=== PATIENT | female | born 1955 | race Caucasian/White ===

== ENCOUNTER → 2017-01-25 | Outpatient (CLI) | payer BC | END | disposition home or self-care (01) | LOC: CFH 14:29 | PROVIDERS: ATTEND Family Medicine | DX: N63 Unspecified lump in breast (principal) | CPT/HCPCS: 76642; G0204 ==

== ENCOUNTER → 2017-02-15 | Outpatient (CLI) | payer BC ==
[~2017-02-15] MED LIST: LIDOCAINE 1%, 20ML ONE
== END | disposition home or self-care (01) ==
LOC: CFH 09:28
PROVIDERS: ATTEND Family Medicine
DX: R92.2 Inconclusive mammogram (principal)
CPT/HCPCS: 19083; 88305; G0206; J3490

== ENCOUNTER → 2017-04-19 | Outpatient (CLI) | payer BC | END | disposition home or self-care (01) | LOC: RAD 12:33 | PROVIDERS: ATTEND Family Medicine | DX: M79.604 Pain in right leg (principal); J18.8 Other pneumonia, unspecified organism; R60.9 Edema, unspecified | CPT/HCPCS: 71020; 93970 ==

== ENCOUNTER 2018-04-23 14:08 | Inpatient (IN) | payer BC, OTHER ==
[~2018-04-23] VITALS: Ht 172.7 cm; Wt 111.8 kg
[2018-04-23] MEDS ORDERED: VANCOMYCIN PER PHARMACY MC ONE (15:00)
[2018-04-23] MEDS ORDERED: LEVOFLOXACIN/PMX 750MG/150ML 150 ML IVPB ONE (15:00)
[2018-04-23] MEDS ORDERED: SODIUM CHLORIDE FLUSH 10ML SYR IVF ONE (15:00)
[2018-04-23 15:21] LABS: BASOPHILS # (AUTO) 0.03 x10^3/uL (0-0.1); BASOPHILS % (AUTO) 0 % (0-1); EOSINOPHILS # (AUTO) 0.15 x10^3/uL (0-0.4); EOSINOPHILS % (AUTO) 1 % (1-7); LYMPHOCYTES # (AUTO) 1.24 x10^3/uL (1-3.4); LYMPHOCYTES % (AUTO) 10 % (22-44); MD NO; MEAN CORPUSCULAR HEMOGLOBIN 27.5 pg (27.0-34.8); MEAN CORPUSCULAR HGB CONC 33.2 g/dL (32.4-35.8); MEAN CORPUSCULAR VOLUME 82.9 fL (80-100); MEAN PLATELET VOLUME 7.2 fL (7.4-10.4); MONOCYTES # (AUTO) 0.75 x10^3/uL (0.2-0.8); MONOCYTES % (AUTO) 6 % (2-9); NEUTROPHILS % (AUTO) 83 % (42-75); PLATELET COUNT 306 x10^3/uL (130-400); RED CELL DISTRIBUTION WIDTH 16.8 % (9.6-15.2)
[2018-04-23] MEDS ORDERED: LEVOFLOXACIN/PMX 750MG/150ML 150 ML ONE (15:23)
[2018-04-23] MEDS ORDERED: VANCOMYCIN 1,600 MG in SODIUM CHLORIDE 0.9% 250 ML IV ONE (15:30)
[2018-04-23 15:31] LABS: ALANINE AMINOTRANSFERASE 20 U/L (12-78); ALBUMIN 3.7 g/dL (3.4-5.0); ANION GAP 4 mmol/L (5-15); CALCIUM 9.1 mg/dL (8.5-10.1); CHLORIDE 101 mmol/L (98-107)
[2018-04-23 15:33] LABS: ALKALINE PHOSPHATASE 131 U/L (45-117); BILIRUBIN,TOTAL 0.5 mg/dL (0.2-1.0); TOTAL PROTEIN 8.5 g/dL (6.4-8.2)
[2018-04-23] MEDS ORDERED: CALCIUM CHLORIDE 10%, 10ML SYR IVPush ONE (16:00)
[2018-04-23] MEDS ORDERED: DEXTROSE 50%, 50ML SYRINGE IVPush ONE (16:00)
[2018-04-23] MEDS ORDERED: INSULIN REGULAR 100 UNITS/ML, 3ML VIAL IVPush ONE (16:00)
[2018-04-23] MEDS ORDERED: FUROSEMIDE 40 MG/4 ML IVPush ONE (16:00)
[2018-04-23] MEDS ORDERED: SODIUM BICARB 8.4%, 50ML SYRINGE IVPush ONE (16:00)
[2018-04-23] MEDS ORDERED: DEXTROSE 50%, 50ML SYRINGE ONE (16:01)
[2018-04-23] MEDS ORDERED: SODIUM BICARB 8.4%, 50ML SYRINGE ONE (16:01)
[2018-04-23] MEDS ORDERED: FUROSEMIDE 40 MG/4 ML ONE (16:01)
[2018-04-23] MEDS ORDERED: CALCIUM CHLORIDE 10%, 10ML SYR ONE (16:01)
[2018-04-23] MEDS ORDERED: INSULIN REGULAR 100 UNITS/ML, 3ML VIAL ONE (16:02)
[2018-04-23] MEDS ORDERED: LIDOCAINE-MPF 1%, 5ML ONE (16:55)
[2018-04-23 16:57] LABS: FREE T4 (FREE THYROXINE) 1.16 ng/dL (0.76-1.46)
[2018-04-23] MEDS ORDERED: LABETALOL 5MG/ML, 20ML IVPush PRN (17:00)
[2018-04-23] MEDS ORDERED: POLYETHYLENE GLYCOL 17 GM PACKET PO PRN (17:00)
[2018-04-23] MEDS ORDERED: ONDANSETRON 2MG/ML, 2ML IVPush PRN (17:00)
[2018-04-23] MEDS ORDERED: ONDANSETRON ODT 4 MG PO PRN (17:00)
[2018-04-23] MEDS ORDERED: CEFTAROLINE 600 MG in SODIUM CHLORIDE 0.9% 100 ML IV SCH (17:00)
[2018-04-23] MEDS ORDERED: PHARMACY MAY ADJ FOR RENAL FX MC PRN (17:00)
[2018-04-23] MEDS: HEPARIN 5,000 UNITS/ML, 1ML SQ SCH (17:00)
[2018-04-23 18:11] LABS: MICROSCOPIC INDICATED
[2018-04-23 18:15] LABS: ANION GAP 6 mmol/L (5-15); CALCIUM 9.3 mg/dL (8.5-10.1); CHLORIDE 103 mmol/L (98-107)
[2018-04-23 18:19] LABS: CREATININE,URINE RANDOM 94.1 mg/dL
[2018-04-23 18:22] LABS: CULTURE INDICATED? NO
[2018-04-23 18:27] LABS: CHLORIDE,URINE RANDOM 78 mmol/L; POTASSIUM,URINE RANDOM 43 mmol/L; SODIUM,URINE RANDOM 39 mmol/L
[2018-04-23 23:22] LABS: ANION GAP 6 mmol/L (5-15); CALCIUM 8.4 mg/dL (8.5-10.1); CHLORIDE 103 mmol/L (98-107); CREATININE 1.43 mg/dL (0.55-1.02)
[2018-04-23 23:32] VITALS: BP 93/55
[2018-04-23] MEDS: CEFTAROLINE 300 MG in SODIUM CHLORIDE 0.9% 100 ML IV SCH (23:45)
[2018-04-24] MEDS: HEPARIN 5,000 UNITS/ML, 1ML SQ SCH ×3 (01:19→17:41)
[2018-04-24 01:38] VITALS: BP 102/69
[2018-04-24] MEDS ORDERED: METF-688 PO (02:33)
[2018-04-24] MEDS ORDERED: OMEP20CA14 PO (02:34)
[2018-04-24] MEDS ORDERED: PRAV80TA2 PO (02:35)
[2018-04-24] MEDS ORDERED: SODI325T PO (02:37)
[2018-04-24] MEDS ORDERED: PARO-28 PO (02:39)
[2018-04-24] MEDS ORDERED: INSU100V13 SQ-INSULIN (02:41)
[2018-04-24 05:18] LABS: BASOPHILS # (AUTO) 0.04 x10^3/uL (0-0.1); BASOPHILS % (AUTO) 0 % (0-1); EOSINOPHILS % (AUTO) 1 % (1-7); LYMPHOCYTES % (AUTO) 15 % (22-44); MD NO; MEAN CORPUSCULAR HEMOGLOBIN 27.7 pg (27.0-34.8); MEAN CORPUSCULAR HGB CONC 33.5 g/dL (32.4-35.8); MEAN CORPUSCULAR VOLUME 82.8 fL (80-100); MEAN PLATELET VOLUME 7.2 fL (7.4-10.4); MONOCYTES # (AUTO) 0.73 x10^3/uL (0.2-0.8); MONOCYTES % (AUTO) 8 % (2-9); NEUTROPHILS # (AUTO) 7.11 x10^3/uL (1.8-6.8); NEUTROPHILS % (AUTO) 76 % (42-75); PLATELET COUNT 266 x10^3/uL (130-400); RED BLOOD COUNT 5.11 x10^6/uL (3.82-5.3); RED CELL DISTRIBUTION WIDTH 16.6 % (9.6-15.2)
[2018-04-24 05:24] LABS: CHLORIDE 103 mmol/L (98-107)
[2018-04-24 05:43] LABS: ALANINE AMINOTRANSFERASE 15 U/L (12-78); ALBUMIN 2.7 g/dL (3.4-5.0); ALKALINE PHOSPHATASE 99 U/L (45-117); ANION GAP 7 mmol/L (5-15); BILIRUBIN,TOTAL 0.5 mg/dL (0.2-1.0); CALCIUM 8.1 mg/dL (8.5-10.1); CREATININE 1.69 mg/dL (0.55-1.02); TOTAL PROTEIN 6.3 g/dL (6.4-8.2)
[2018-04-24 06:50] VITALS: BP 114/63
[2018-04-24] MEDS ORDERED: SODIUM POLYSTYRENE SULFONATE ORAL SUSP PO ONE (08:30)
[2018-04-24] MEDS ORDERED: SODIUM CHLORIDE 0.9%, 500ML IV SCH (08:30)
[2018-04-24] MEDS: SENNA/DOCUSATE TABLET PO SCH (09:00)
[2018-04-24] MEDS: CEFTAROLINE 300 MG in SODIUM CHLORIDE 0.9% 100 ML IV SCH ×2 (11:45→23:02)
[2018-04-24 13:44] VITALS: BP 114/63
[2018-04-24 14:13] LABS: ANION GAP 6 mmol/L (5-15); CALCIUM 8.4 mg/dL (8.5-10.1); CHLORIDE 105 mmol/L (98-107); CREATININE 2.01 mg/dL (0.55-1.02)
[2018-04-24 14:16] LABS: CREATINE KINASE, TOTAL 136 U/L (26-192)
[2018-04-24 20:34] VITALS: BP 119/76
[2018-04-25] MEDS: HEPARIN 5,000 UNITS/ML, 1ML SQ SCH ×3 (01:50→20:24)
[2018-04-25 01:51] VITALS: BP 113/73
[2018-04-25 04:49] LABS: BASOPHILS # (AUTO) 0.03 x10^3/uL (0-0.1); BASOPHILS % (AUTO) 0 % (0-1); EOSINOPHILS # (AUTO) 0.11 x10^3/uL (0-0.4); EOSINOPHILS % (AUTO) 1 % (1-7); LYMPHOCYTES # (AUTO) 1.17 x10^3/uL (1-3.4); LYMPHOCYTES % (AUTO) 15 % (22-44); MD NO; MEAN CORPUSCULAR HGB CONC 33.5 g/dL (32.4-35.8); MEAN CORPUSCULAR VOLUME 83.4 fL (80-100); MONOCYTES # (AUTO) 0.61 x10^3/uL (0.2-0.8); MONOCYTES % (AUTO) 8 % (2-9); NEUTROPHILS # (AUTO) 5.93 x10^3/uL (1.8-6.8); NEUTROPHILS % (AUTO) 75 % (42-75); PLATELET COUNT 215 x10^3/uL (130-400); RED BLOOD COUNT 4.71 x10^6/uL (3.82-5.3); RED CELL DISTRIBUTION WIDTH 16.9 % (9.6-15.2)
[2018-04-25 04:57] LABS: ALBUMIN 2.2 g/dL (3.4-5.0); ANION GAP 7 mmol/L (5-15); CALCIUM 7.9 mg/dL (8.5-10.1); CHLORIDE 104 mmol/L (98-107); CREATININE 1.82 mg/dL (0.55-1.02)
[2018-04-25 07:33] VITALS: BP 116/72
[2018-04-25] MEDS: SENNA/DOCUSATE TABLET PO SCH (07:54)
[2018-04-25] MEDS: CEFTAROLINE 300 MG in SODIUM CHLORIDE 0.9% 100 ML IV SCH (11:18)
[2018-04-25 15:37] VITALS: BP 107/69
[2018-04-25 20:32] VITALS: BP 103/68
[2018-04-25] MEDS: CEFTAROLINE 400 MG in SODIUM CHLORIDE 0.9% 100 ML IV SCH (23:36)
[2018-04-26 01:25] VITALS: BP 103/61
[2018-04-26 05:25] LABS: BASOPHILS # (AUTO) 0.03 x10^3/uL (0-0.1); BASOPHILS % (AUTO) 0 % (0-1); EOSINOPHILS # (AUTO) 0.12 x10^3/uL (0-0.4); EOSINOPHILS % (AUTO) 2 % (1-7); LYMPHOCYTES # (AUTO) 1.45 x10^3/uL (1-3.4); LYMPHOCYTES % (AUTO) 20 % (22-44); MD NO; MEAN CORPUSCULAR HEMOGLOBIN 27.8 pg (27.0-34.8); MEAN CORPUSCULAR HGB CONC 33.5 g/dL (32.4-35.8); MEAN CORPUSCULAR VOLUME 83.2 fL (80-100); MEAN PLATELET VOLUME 7.3 fL (7.4-10.4); MONOCYTES # (AUTO) 0.66 x10^3/uL (0.2-0.8); MONOCYTES % (AUTO) 9 % (2-9); NEUTROPHILS # (AUTO) 4.97 x10^3/uL (1.8-6.8); NEUTROPHILS % (AUTO) 69 % (42-75); PLATELET COUNT 210 x10^3/uL (130-400); RED BLOOD COUNT 4.44 x10^6/uL (3.82-5.3); RED CELL DISTRIBUTION WIDTH 16.3 % (9.6-15.2)
[2018-04-26] MEDS: HEPARIN 5,000 UNITS/ML, 1ML SQ SCH ×3 (05:26→19:49)
[2018-04-26 05:40] LABS: ALANINE AMINOTRANSFERASE 13 U/L (12-78); ALBUMIN 2.1 g/dL (3.4-5.0); ANION GAP 6 mmol/L (5-15); CALCIUM 7.8 mg/dL (8.5-10.1); CHLORIDE 100 mmol/L (98-107)
[2018-04-26 05:43] LABS: ALKALINE PHOSPHATASE 81 U/L (45-117); BILIRUBIN,TOTAL 0.4 mg/dL (0.2-1.0); TOTAL PROTEIN 5.5 g/dL (6.4-8.2)
[2018-04-26] MEDS ORDERED: MAGNESIUM SULFATE PMX 2GM/50ML 50 ML IV ONE (08:00)
[2018-04-26] MEDS: SENNA/DOCUSATE TABLET PO SCH (09:00)
[2018-04-26] MEDS: CEFTAROLINE 400 MG in SODIUM CHLORIDE 0.9% 100 ML IV SCH ×2 (11:19→23:44)
[2018-04-26] MEDS: PANTOPRAZOLE 40 MG IV IVPush SCH ×2 (11:19→23:44)
[2018-04-26 13:02] VITALS: BP 112/74
[2018-04-26 20:43] VITALS: BP 108/66
[2018-04-27 00:58] VITALS: BP 128/87
[2018-04-27] MEDS: HEPARIN 5,000 UNITS/ML, 1ML SQ SCH ×2 (05:08→10:57)
[2018-04-27 05:27] LABS: ALBUMIN 2.2 g/dL (3.4-5.0); ANION GAP 6 mmol/L (5-15); CALCIUM 7.9 mg/dL (8.5-10.1); CHLORIDE 101 mmol/L (98-107); CREATININE 1.39 mg/dL (0.55-1.02)
[2018-04-27 05:45] LABS: BASOPHILS # (AUTO) 0.02 x10^3/uL (0-0.1); BASOPHILS % (AUTO) 0 % (0-1); EOSINOPHILS # (AUTO) 0.19 x10^3/uL (0-0.4); EOSINOPHILS % (AUTO) 3 % (1-7); LYMPHOCYTES # (AUTO) 1.34 x10^3/uL (1-3.4); LYMPHOCYTES % (AUTO) 20 % (22-44); MD NO; MEAN CORPUSCULAR HEMOGLOBIN 27.8 pg (27.0-34.8); MEAN CORPUSCULAR HGB CONC 33.3 g/dL (32.4-35.8); MEAN CORPUSCULAR VOLUME 83.5 fL (80-100); MEAN PLATELET VOLUME 7.3 fL (7.4-10.4); MONOCYTES % (AUTO) 9 % (2-9); NEUTROPHILS # (AUTO) 4.47 x10^3/uL (1.8-6.8); NEUTROPHILS % (AUTO) 68 % (42-75); PLATELET COUNT 207 x10^3/uL (130-400); RED CELL DISTRIBUTION WIDTH 16.7 % (9.6-15.2)
[2018-04-27 07:33] VITALS: BP 104/71
[2018-04-27] MEDS: SENNA/DOCUSATE TABLET PO SCH (08:01)
[2018-04-27] MEDS ORDERED: CEPH-368 PO (10:41)
[2018-04-27] MEDS: CEFTAROLINE 400 MG in SODIUM CHLORIDE 0.9% 100 ML IV SCH ×2 (11:00→11:33)
[2018-04-27] MEDS: PANTOPRAZOLE 40 MG IV IVPush SCH (11:33)
[2018-04-27] MEDS ORDERED: CEPHALEXIN 500 MG CAPSULE PO ONE (12:00)
== END 2018-04-27 13:33 | disposition home or self-care (01) | DRG 300 ==
LOC: ED 17:14 → EDIP 17:15 → 5SO 19:21 → DCLOUNGE 04-27 13:18
PROVIDERS: ADMIT Hospitalist; ATTEND Hospitalist
PROC: 5A1D70Z Performance of Urinary Filtration, Intermittent, Less than 6 Hours Per Day (ICD-10-PCS; principal; 2018-04-23)
PROC: 02HV33Z Insertion of Infusion Device into Superior Vena Cava, Percutaneous Approach (ICD-10-PCS; 2018-04-24)
PROC: B5181ZA Fluoroscopy of Superior Vena Cava using Low Osmolar Contrast, Guidance (ICD-10-PCS; 2018-04-24)
PROC: B548ZZA Ultrasonography of Superior Vena Cava, Guidance (ICD-10-PCS; 2018-04-24)
DX: I70.213 Atherosclerosis of native arteries of extremities with intermittent claudication, bilateral legs (principal); E87.1 Hypo-osmolality and hyponatremia; I50.30 Unspecified diastolic (congestive) heart failure; L03.115 Cellulitis of right lower limb; L03.116 Cellulitis of left lower limb; L97.919 Non-pressure chronic ulcer of unspecified part of right lower leg with unspecified severity; N17.9 Acute kidney failure, unspecified; L97.929 Non-pressure chronic ulcer of unspecified part of left lower leg with unspecified severity; E11.22 Type 2 diabetes mellitus with diabetic chronic kidney disease; E11.51 Type 2 diabetes mellitus with diabetic peripheral angiopathy without gangrene; E87.5 Hyperkalemia; F17.200 Nicotine dependence, unspecified, uncomplicated; G25.81 Restless legs syndrome; K21.9 Gastro-esophageal reflux disease without esophagitis; Z80.3 Family history of malignant neoplasm of breast; Z82.0 Family history of epilepsy and other diseases of the nervous system; Z99.2 Dependence on renal dialysis
CPT/HCPCS: 36415; 36556; 71045; 76770; 76937; 77001; 80048; 80053; 80069; 81001; 82040; 82436; 82550; 82570; 82962; 83605; 83735; 84100; 84133; 84156; 84300; 84439; 84443; 85025; 86705; 86706; 87040; 87070; 87077; 87147; 87186; 87205; 87340; 93005; 93306; 93922; 93970; G0378; J0712; J1644; J1940; J1956; J3370; C1751; C9113; J1642; J3475; J7040; J7050

== ENCOUNTER → 2018-05-02 | Outpatient (CLI) | payer OTHER ==
[~2018-05-02] MED LIST changes: +CEPH-368 PO; +INSU100V13 SQ-INSULIN; -LIDOCAINE 1%, 20ML ONE; +METF-688 PO; +OMEP20CA14 PO; +PARO-28 PO; +PRAV80TA2 PO; +SODI325T PO
== END | disposition home or self-care (01) ==
LOC: WOUND 14:27
PROVIDERS: ATTEND Internal Medicine
DX: E11.622 Type 2 diabetes mellitus with other skin ulcer (principal); L97.811 Non-pressure chronic ulcer of other part of right lower leg limited to breakdown of skin; L97.821 Non-pressure chronic ulcer of other part of left lower leg limited to breakdown of skin; E11.51 Type 2 diabetes mellitus with diabetic peripheral angiopathy without gangrene; I13.0 Hypertensive heart and chronic kidney disease with heart failure and stage 1 through stage 4 chronic kidney disease, or unspecified chronic kidney disease; E11.22 Type 2 diabetes mellitus with diabetic chronic kidney disease; N18.9 Chronic kidney disease, unspecified; I50.30 Unspecified diastolic (congestive) heart failure; E78.5 Hyperlipidemia, unspecified; F32.9 Major depressive disorder, single episode, unspecified; F41.9 Anxiety disorder, unspecified; K21.9 Gastro-esophageal reflux disease without esophagitis; F17.210 Nicotine dependence, cigarettes, uncomplicated; G25.81 Restless legs syndrome; Z79.4 Long term (current) use of insulin; Z99.2 Dependence on renal dialysis; Z86.718 Personal history of other venous thrombosis and embolism
CPT/HCPCS: 97597; 97598; 99215

== ENCOUNTER 2018-05-07 14:27 | Outpatient (CLI) | payer OTHER | END 2018-05-07 23:59 | disposition home or self-care (01) | LOC: WOUND 14:27 | PROVIDERS: ATTEND Internal Medicine | DX: E11.622 Type 2 diabetes mellitus with other skin ulcer (principal); L97.821 Non-pressure chronic ulcer of other part of left lower leg limited to breakdown of skin; L97.811 Non-pressure chronic ulcer of other part of right lower leg limited to breakdown of skin; E11.51 Type 2 diabetes mellitus with diabetic peripheral angiopathy without gangrene; I13.0 Hypertensive heart and chronic kidney disease with heart failure and stage 1 through stage 4 chronic kidney disease, or unspecified chronic kidney disease; E11.22 Type 2 diabetes mellitus with diabetic chronic kidney disease; N18.9 Chronic kidney disease, unspecified; I50.9 Heart failure, unspecified; E78.5 Hyperlipidemia, unspecified; G25.81 Restless legs syndrome; G89.4 Chronic pain syndrome; F41.9 Anxiety disorder, unspecified; F17.210 Nicotine dependence, cigarettes, uncomplicated; F32.9 Major depressive disorder, single episode, unspecified; K21.9 Gastro-esophageal reflux disease without esophagitis; Z79.4 Long term (current) use of insulin; Z99.2 Dependence on renal dialysis; Z85.3 Personal history of malignant neoplasm of breast | CPT/HCPCS: 29581; 97597; 97598 ==

== ENCOUNTER 2018-05-14 13:51 | Outpatient (CLI) | payer OTHER | END 2018-05-14 23:59 | disposition home or self-care (01) | LOC: WOUND 13:51 | PROVIDERS: ATTEND Internal Medicine | DX: E11.622 Type 2 diabetes mellitus with other skin ulcer (principal); L97.811 Non-pressure chronic ulcer of other part of right lower leg limited to breakdown of skin; L97.821 Non-pressure chronic ulcer of other part of left lower leg limited to breakdown of skin; E11.51 Type 2 diabetes mellitus with diabetic peripheral angiopathy without gangrene; I13.0 Hypertensive heart and chronic kidney disease with heart failure and stage 1 through stage 4 chronic kidney disease, or unspecified chronic kidney disease; E11.22 Type 2 diabetes mellitus with diabetic chronic kidney disease; N18.9 Chronic kidney disease, unspecified; I50.30 Unspecified diastolic (congestive) heart failure; G25.81 Restless legs syndrome; E78.5 Hyperlipidemia, unspecified; F41.9 Anxiety disorder, unspecified; F32.9 Major depressive disorder, single episode, unspecified; F17.210 Nicotine dependence, cigarettes, uncomplicated; K21.9 Gastro-esophageal reflux disease without esophagitis; Z99.2 Dependence on renal dialysis; Z79.4 Long term (current) use of insulin; Z85.3 Personal history of malignant neoplasm of breast; Z86.718 Personal history of other venous thrombosis and embolism | CPT/HCPCS: 97597 ==

== ENCOUNTER → 2018-05-21 | Outpatient (CLI) | payer OTHER | END | disposition home or self-care (01) | LOC: WOUND 14:38 | PROVIDERS: ATTEND Internal Medicine | DX: L03.115 Cellulitis of right lower limb (principal); L03.116 Cellulitis of left lower limb; E11.51 Type 2 diabetes mellitus with diabetic peripheral angiopathy without gangrene; I13.0 Hypertensive heart and chronic kidney disease with heart failure and stage 1 through stage 4 chronic kidney disease, or unspecified chronic kidney disease; E11.22 Type 2 diabetes mellitus with diabetic chronic kidney disease; N18.9 Chronic kidney disease, unspecified; I50.30 Unspecified diastolic (congestive) heart failure; G25.81 Restless legs syndrome; E78.5 Hyperlipidemia, unspecified; F32.9 Major depressive disorder, single episode, unspecified; F41.9 Anxiety disorder, unspecified; K21.9 Gastro-esophageal reflux disease without esophagitis; F17.210 Nicotine dependence, cigarettes, uncomplicated; Z79.4 Long term (current) use of insulin | CPT/HCPCS: 99214 ==

== ENCOUNTER 2018-05-23 15:00 | Outpatient (CLI) | payer OTHER | END 2018-05-23 23:59 | disposition home or self-care (01) | LOC: WOUND 15:00 | PROVIDERS: ATTEND Internal Medicine | DX: E11.622 Type 2 diabetes mellitus with other skin ulcer (principal); L97.811 Non-pressure chronic ulcer of other part of right lower leg limited to breakdown of skin; L97.821 Non-pressure chronic ulcer of other part of left lower leg limited to breakdown of skin; E11.51 Type 2 diabetes mellitus with diabetic peripheral angiopathy without gangrene; I13.0 Hypertensive heart and chronic kidney disease with heart failure and stage 1 through stage 4 chronic kidney disease, or unspecified chronic kidney disease; N18.9 Chronic kidney disease, unspecified; E11.22 Type 2 diabetes mellitus with diabetic chronic kidney disease; I50.9 Heart failure, unspecified; G89.4 Chronic pain syndrome; F41.9 Anxiety disorder, unspecified; E78.5 Hyperlipidemia, unspecified; K21.9 Gastro-esophageal reflux disease without esophagitis; F32.9 Major depressive disorder, single episode, unspecified; F17.210 Nicotine dependence, cigarettes, uncomplicated; Z99.2 Dependence on renal dialysis; Z79.4 Long term (current) use of insulin; Z85.3 Personal history of malignant neoplasm of breast; Z86.718 Personal history of other venous thrombosis and embolism | CPT/HCPCS: 29581 ==

== ENCOUNTER → 2018-05-30 | Outpatient (CLI) | payer OTHER | END | disposition home or self-care (01) | LOC: WOUND 11:30 | PROVIDERS: ATTEND Internal Medicine Cardiovascular Disease | DX: L03.116 Cellulitis of left lower limb (principal); L03.115 Cellulitis of right lower limb; E11.51 Type 2 diabetes mellitus with diabetic peripheral angiopathy without gangrene; I13.0 Hypertensive heart and chronic kidney disease with heart failure and stage 1 through stage 4 chronic kidney disease, or unspecified chronic kidney disease; E11.22 Type 2 diabetes mellitus with diabetic chronic kidney disease; N18.9 Chronic kidney disease, unspecified; I50.30 Unspecified diastolic (congestive) heart failure; G25.81 Restless legs syndrome; F41.9 Anxiety disorder, unspecified; E78.5 Hyperlipidemia, unspecified; F32.9 Major depressive disorder, single episode, unspecified; K21.9 Gastro-esophageal reflux disease without esophagitis; F17.210 Nicotine dependence, cigarettes, uncomplicated; Z86.718 Personal history of other venous thrombosis and embolism; Z99.2 Dependence on renal dialysis; Z79.4 Long term (current) use of insulin | CPT/HCPCS: 29581 ==

== ENCOUNTER → 2018-06-04 | Outpatient (CLI) | payer OTHER | END | disposition home or self-care (01) | LOC: WOUND 15:27 | PROVIDERS: ATTEND Family Medicine | DX: E11.622 Type 2 diabetes mellitus with other skin ulcer (principal); L97.211 Non-pressure chronic ulcer of right calf limited to breakdown of skin; L97.221 Non-pressure chronic ulcer of left calf limited to breakdown of skin; E11.51 Type 2 diabetes mellitus with diabetic peripheral angiopathy without gangrene; I13.0 Hypertensive heart and chronic kidney disease with heart failure and stage 1 through stage 4 chronic kidney disease, or unspecified chronic kidney disease; E11.22 Type 2 diabetes mellitus with diabetic chronic kidney disease; N18.9 Chronic kidney disease, unspecified; I50.30 Unspecified diastolic (congestive) heart failure; F41.9 Anxiety disorder, unspecified; G25.81 Restless legs syndrome; E78.5 Hyperlipidemia, unspecified; F32.9 Major depressive disorder, single episode, unspecified; F17.210 Nicotine dependence, cigarettes, uncomplicated; K21.9 Gastro-esophageal reflux disease without esophagitis; Z79.4 Long term (current) use of insulin; Z86.718 Personal history of other venous thrombosis and embolism | CPT/HCPCS: 29581 ==

== ENCOUNTER → 2018-06-11 | Outpatient (CLI) | payer OTHER | END | disposition home or self-care (01) | LOC: WOUND 14:17 | PROVIDERS: ATTEND Family Medicine | DX: E11.622 Type 2 diabetes mellitus with other skin ulcer (principal); L97.211 Non-pressure chronic ulcer of right calf limited to breakdown of skin; L97.221 Non-pressure chronic ulcer of left calf limited to breakdown of skin; E11.51 Type 2 diabetes mellitus with diabetic peripheral angiopathy without gangrene; I13.0 Hypertensive heart and chronic kidney disease with heart failure and stage 1 through stage 4 chronic kidney disease, or unspecified chronic kidney disease; E11.22 Type 2 diabetes mellitus with diabetic chronic kidney disease; N18.9 Chronic kidney disease, unspecified; I50.30 Unspecified diastolic (congestive) heart failure; F41.9 Anxiety disorder, unspecified; E78.5 Hyperlipidemia, unspecified; F32.9 Major depressive disorder, single episode, unspecified; K21.9 Gastro-esophageal reflux disease without esophagitis; F17.210 Nicotine dependence, cigarettes, uncomplicated; Z86.718 Personal history of other venous thrombosis and embolism; Z85.3 Personal history of malignant neoplasm of breast; Z79.4 Long term (current) use of insulin; Z99.2 Dependence on renal dialysis | CPT/HCPCS: 29581 ==

== ENCOUNTER 2018-06-18 13:14 | Outpatient (CLI) | payer OTHER | END 2018-06-18 23:59 | disposition home or self-care (01) | LOC: WOUND 13:14 | PROVIDERS: ATTEND Internal Medicine | DX: E11.622 Type 2 diabetes mellitus with other skin ulcer (principal); L97.221 Non-pressure chronic ulcer of left calf limited to breakdown of skin; E11.51 Type 2 diabetes mellitus with diabetic peripheral angiopathy without gangrene; I13.0 Hypertensive heart and chronic kidney disease with heart failure and stage 1 through stage 4 chronic kidney disease, or unspecified chronic kidney disease; E11.22 Type 2 diabetes mellitus with diabetic chronic kidney disease; N18.9 Chronic kidney disease, unspecified; I50.30 Unspecified diastolic (congestive) heart failure; E78.5 Hyperlipidemia, unspecified; F41.9 Anxiety disorder, unspecified; G25.81 Restless legs syndrome; G89.4 Chronic pain syndrome; F32.9 Major depressive disorder, single episode, unspecified; K21.9 Gastro-esophageal reflux disease without esophagitis; F17.210 Nicotine dependence, cigarettes, uncomplicated; Z79.4 Long term (current) use of insulin; Z99.2 Dependence on renal dialysis; Z85.3 Personal history of malignant neoplasm of breast; Z86.718 Personal history of other venous thrombosis and embolism | CPT/HCPCS: 29581; 97597 ==

== ENCOUNTER → 2018-06-25 | Outpatient (CLI) | payer OTHER | END | disposition home or self-care (01) | LOC: WOUND 14:57 | PROVIDERS: ATTEND Internal Medicine | DX: E11.622 Type 2 diabetes mellitus with other skin ulcer (principal); L97.211 Non-pressure chronic ulcer of right calf limited to breakdown of skin; L97.221 Non-pressure chronic ulcer of left calf limited to breakdown of skin; E11.51 Type 2 diabetes mellitus with diabetic peripheral angiopathy without gangrene; I13.0 Hypertensive heart and chronic kidney disease with heart failure and stage 1 through stage 4 chronic kidney disease, or unspecified chronic kidney disease; E11.22 Type 2 diabetes mellitus with diabetic chronic kidney disease; N18.9 Chronic kidney disease, unspecified; I50.30 Unspecified diastolic (congestive) heart failure; F41.9 Anxiety disorder, unspecified; E78.5 Hyperlipidemia, unspecified; G89.4 Chronic pain syndrome; F17.210 Nicotine dependence, cigarettes, uncomplicated; K21.9 Gastro-esophageal reflux disease without esophagitis; F32.9 Major depressive disorder, single episode, unspecified; Z99.2 Dependence on renal dialysis; Z79.4 Long term (current) use of insulin; Z85.3 Personal history of malignant neoplasm of breast; Z86.711 Personal history of pulmonary embolism | CPT/HCPCS: 99214 ==

== ENCOUNTER 2018-11-23 09:06 | Outpatient (CLI) | payer OTHER | END 2018-11-23 23:59 | disposition home or self-care (01) | LOC: WOUND 09:06 | PROVIDERS: ATTEND Family Medicine | DX: E11.622 Type 2 diabetes mellitus with other skin ulcer (principal); I87.333 Chronic venous hypertension (idiopathic) with ulcer and inflammation of bilateral lower extremity; L97.222 Non-pressure chronic ulcer of left calf with fat layer exposed; L97.212 Non-pressure chronic ulcer of right calf with fat layer exposed; E11.51 Type 2 diabetes mellitus with diabetic peripheral angiopathy without gangrene; E11.65 Type 2 diabetes mellitus with hyperglycemia; E78.5 Hyperlipidemia, unspecified; G89.4 Chronic pain syndrome; E66.9 Obesity, unspecified; F41.9 Anxiety disorder, unspecified; F17.200 Nicotine dependence, unspecified, uncomplicated; K21.9 Gastro-esophageal reflux disease without esophagitis; F32.9 Major depressive disorder, single episode, unspecified; Z99.2 Dependence on renal dialysis; Z79.4 Long term (current) use of insulin; Z88.0 Allergy status to penicillin; Z86.711 Personal history of pulmonary embolism; Z68.24 Body mass index [BMI] 24.0-24.9, adult; Z85.3 Personal history of malignant neoplasm of breast; Z90.49 Acquired absence of other specified parts of digestive tract; Z88.8 Allergy status to other drugs, medicaments and biological substances | CPT/HCPCS: 97597; 99215 ==

== ENCOUNTER 2018-11-27 21:35 | Inpatient (IN) | payer OTHER ==
[~2018-11-27] VITALS: Ht 172.7 cm; Wt 122.1 kg
--- NOTE | 2018-11-27 22:15 | NUR ---
FRIEND REPORT SHE WOKE PATIENT UP OUT OF HER SLEEP AND NOTICED A RIGHT SIDED FACIAL DROOP AND SLURRED SPEECH, AND THEN CAME STRAIGHT TO THE HOSPITAL. PT WAS LAST SEEN NORMAL AT 1999 BY HER FRIEND. PT SYMPTOMS RESOLVED BY THE TIME THEY ARRIVED TO THE HOSPITAL. PT HAS NO COMPLAINTS CURRENTLY AND IS NEUROLOGICALLY INTACT.
[2018-11-27 22:22] LABS: BASOPHILS # (AUTO) 0.12 x10^3/uL (0-0.1); BASOPHILS % (AUTO) 1 % (0-1); EOSINOPHILS # (AUTO) 0.13 x10^3/uL (0-0.4); EOSINOPHILS % (AUTO) 1 % (1-7); LYMPHOCYTES # (AUTO) 1.95 x10^3/uL (1-3.4); LYMPHOCYTES % (AUTO) 20 % (22-44); MD NO; MEAN CORPUSCULAR HEMOGLOBIN 25.9 pg (27.0-34.8); MEAN CORPUSCULAR HGB CONC 31.5 g/dL (32.4-35.8); MEAN CORPUSCULAR VOLUME 82.1 fL (80-100); MEAN PLATELET VOLUME 6.9 fL (7.4-10.4); MONOCYTES # (AUTO) 0.63 x10^3/uL (0.2-0.8); MONOCYTES % (AUTO) 6 % (2-9); NEUTROPHILS # (AUTO) 6.97 x10^3/uL (1.8-6.8); NEUTROPHILS % (AUTO) 71 % (42-75); PLATELET COUNT 254 x10^3/uL (130-400); RED BLOOD COUNT 5.53 x10^6/uL (3.82-5.3); RED CELL DISTRIBUTION WIDTH 18.9 % (9.6-15.2)
[2018-11-27 22:29] LABS: ALANINE AMINOTRANSFERASE 16 U/L (12-78); ALBUMIN 3.1 g/dL (3.4-5.0); ANION GAP 7 mmol/L (5-15); CALCIUM 8.4 mg/dL (8.5-10.1); CHLORIDE 100 mmol/L (98-107); CREATININE 1.11 mg/dL (0.55-1.02); INTERNATIONAL NORMALIZED RATIO 1.14 (0.93-1.1); PROTHROMBIN TIME 11.9 Seconds (9.6-11.5)
[2018-11-27 22:32] LABS: ALKALINE PHOSPHATASE 113 U/L (45-117); BILIRUBIN,TOTAL 0.6 mg/dL (0.2-1.0); TOTAL PROTEIN 6.9 g/dL (6.4-8.2)
--- NOTE | 2018-11-27 22:32 | NUR ---
PT TO CT SCAN
--- NOTE | 2018-11-27 23:08 | NUR ---
PT UPDATED ON PLAN OF CARE. CALL LIGHT WITHIN REACH. PT CONTINUES TO HAVE NO NEURO DEFICITS. FRIEND AT BEDSIDE. WILL CONTINUE TO MONITOR.
--- NOTE | 2018-11-28 00:15 | NUR ---
PT UPDATED ON POC. FRIEND AT BEDSIDE. PT RESTING COMFORTABLY IN BED. PT AROUSABLE TO VOICE. NO NEURO DEFICITS AT TIME OF TRANSPORT.
[2018-11-28 00:50] VITALS: BP 158/100
[2018-11-28 01:55] VITALS: BP 158/100
[2018-11-28] MEDS ORDERED: morphine SULFATE 10 MG/ML, 1ML IVPush PRN (02:30)
[2018-11-28] MEDS ORDERED: LABETALOL 5MG/ML, 20ML IVPush PRN (02:30)
[2018-11-28] MEDS ORDERED: ONDANSETRON 2MG/ML, 2ML IVPush PRN (02:30)
[2018-11-28] MEDS ORDERED: BISACODYL 10 MG SUPP PR PRN (02:30)
[2018-11-28] MEDS ORDERED: GABAPENTIN 300 MG CAPSULE PO PRN (02:30)
[2018-11-28] MEDS ORDERED: POLYETHYLENE GLYCOL 17 GM PACKET PO PRN (02:30)
[2018-11-28] MEDS ORDERED: hydrALAzine 20 MG/ML, 1ML IVPush PRN (02:30)
[2018-11-28] MEDS ORDERED: ACETAMINOPHEN 325 MG TABLET PO PRN (02:30)
[2018-11-28] MEDS ORDERED: ONDANSETRON ODT 4 MG PO PRN (02:30)
[2018-11-28] MEDS ORDERED: OXYcodone IR 5MG TABLET PO PRN (02:30)
[2018-11-28] MEDS ORDERED: PROMETHAZINE 25 MG/ML, 1ML IM PRN (02:30)
[2018-11-28] MEDS ORDERED: DOCUSATE 100 MG CAPSULE PO PRN (02:30)
[2018-11-28 03:17] LABS: FREE T4 (FREE THYROXINE) 1.27 ng/dL (0.76-1.46); TROPONIN I < 0.015 ng/mL (0.000-0.045)
[2018-11-28] MEDS: SODIUM CHLORIDE 0.9% 1,000 ML IV SCH ×2 (03:19→17:37)
[2018-11-28] MEDS: NICOTINE 14MG/24 HR PATCH.TD24 TD SCH (03:20)
[2018-11-28] MEDS: HEPARIN 5,000 UNITS/ML, 1ML SQ SCH ×3 (03:20→21:06)
[2018-11-28 03:25] LABS: HEMOGLOBIN A1C 8.4 % (4.2-6.3)
[2018-11-28 04:38] VITALS: BP 147/83
[2018-11-28] MEDS: INSULIN LISPRO 100 UNITS/ML, PEN SQ-INSULIN SCH ×5 (04:38→21:05)
[2018-11-28] MEDS: OMEPRAZOLE 20 MG CAPSULE.DR PO SCH (05:45)
[2018-11-28] MEDS: ASPIRIN 325 MG TABLET EC PO SCH (05:45)
[2018-11-28 06:36] LABS: MICROSCOPIC INDICATED
[2018-11-28 06:44] LABS: CULTURE INDICATED? YES
[2018-11-28 07:15] VITALS: BP 143/84
[2018-11-28 08:10] LABS: TROPONIN I < 0.015 ng/mL (0.000-0.045)
[2018-11-28] MEDS: SODIUM BICARBONATE 650 MG TABLET PO SCH (08:20)
[2018-11-28] MEDS: INSULIN GLARGINE 100 UNITS/ML, PEN SQ-INSULIN SCH ×2 (08:21→21:06)
[2018-11-28] MEDS ORDERED: MAGNESIUM SULFATE PMX 2GM/50ML 50 ML IV ONE (12:30)
[2018-11-28 14:10] VITALS: BP 139/76
[2018-11-28 19:19] VITALS: BP 140/84
[2018-11-28] MEDS ORDERED: ATORVASTATIN 20 MG TABLET PO SCH (21:00)
[2018-11-28] MEDS ORDERED: PAROXETINE 20 MG TABLET PO SCH (21:00)
[2018-11-29 00:57] VITALS: BP 150/89
[2018-11-29] MEDS: NICOTINE 14MG/24 HR PATCH.TD24 TD SCH (03:02)
[2018-11-29 05:35] LABS: BASOPHILS # (AUTO) 0.04 x10^3/uL (0-0.1); BASOPHILS % (AUTO) 1 % (0-1); EOSINOPHILS # (AUTO) 0.08 x10^3/uL (0-0.4); EOSINOPHILS % (AUTO) 1 % (1-7); LYMPHOCYTES # (AUTO) 1.65 x10^3/uL (1-3.4); LYMPHOCYTES % (AUTO) 20 % (22-44); MD NO; MEAN CORPUSCULAR HEMOGLOBIN 25.9 pg (27.0-34.8); MEAN CORPUSCULAR HGB CONC 31.4 g/dL (32.4-35.8); MEAN CORPUSCULAR VOLUME 82.3 fL (80-100); MEAN PLATELET VOLUME 7.5 fL (7.4-10.4); MONOCYTES # (AUTO) 0.57 x10^3/uL (0.2-0.8); MONOCYTES % (AUTO) 7 % (2-9); NEUTROPHILS # (AUTO) 5.96 x10^3/uL (1.8-6.8); NEUTROPHILS % (AUTO) 72 % (42-75); PLATELET COUNT 222 x10^3/uL (130-400); RED CELL DISTRIBUTION WIDTH 19.1 % (9.6-15.2)
[2018-11-29] MEDS: OMEPRAZOLE 20 MG CAPSULE.DR PO SCH (05:51)
[2018-11-29] MEDS: ASPIRIN 325 MG TABLET EC PO SCH (05:51)
[2018-11-29] MEDS: HEPARIN 5,000 UNITS/ML, 1ML SQ SCH ×2 (05:52→13:30)
[2018-11-29 06:02] LABS: CHLORIDE 104 mmol/L (98-107)
[2018-11-29 06:14] LABS: ALANINE AMINOTRANSFERASE 12 U/L (12-78); ALBUMIN 2.9 g/dL (3.4-5.0); ALKALINE PHOSPHATASE 89 U/L (45-117); ANION GAP 7 mmol/L (5-15); BILIRUBIN,TOTAL 0.6 mg/dL (0.2-1.0); CALCIUM 8.4 mg/dL (8.5-10.1); CHOLESTEROL, TOTAL 116 mg/dL (140-239); CREATININE 1.02 mg/dL (0.55-1.02); HDL CHOL % 25 % (28-40); HDL CHOLESTEROL (DIRECT) 29 mg/dL (40-60); LDL CHOLESTEROL,CALCULATED 63 mg/dL (54-169); LDL/HDL RATIO 2.2 (0.5-3.0); TOTAL PROTEIN 6.3 g/dL (6.4-8.2); TRIGLYCERIDES 121 mg/dL (50-200); VLDL CHOLESTEROL 24 mg/dL (0-25)
[2018-11-29] MEDS: INSULIN LISPRO 100 UNITS/ML, PEN SQ-INSULIN SCH ×2 (07:00→12:06)
[2018-11-29 07:52] VITALS: BP 152/95
[2018-11-29] MEDS: SODIUM BICARBONATE 650 MG TABLET PO SCH (09:47)
[2018-11-29] MEDS: INSULIN GLARGINE 100 UNITS/ML, PEN SQ-INSULIN SCH (09:47)
[2018-11-29 13:21] VITALS: BP 158/100
[2018-11-29] MEDS ORDERED: LOSA50TA2 PO (14:44)
== END 2018-11-29 16:14 | disposition home or self-care (01) | DRG 69 ==
LOC: ED 23:26 → EDIP 23:48 → 4EST 11-28 00:43
PROVIDERS: ADMIT Internal Medicine; ATTEND Internal Medicine
DX: G45.9 Transient cerebral ischemic attack, unspecified (principal); E44.0 Moderate protein-calorie malnutrition; Z68.41 Body mass index [BMI] 40.0-44.9, adult; L03.115 Cellulitis of right lower limb; L03.116 Cellulitis of left lower limb; E11.51 Type 2 diabetes mellitus with diabetic peripheral angiopathy without gangrene; E11.65 Type 2 diabetes mellitus with hyperglycemia; E66.9 Obesity, unspecified; E78.5 Hyperlipidemia, unspecified; F41.9 Anxiety disorder, unspecified; I08.1 Rheumatic disorders of both mitral and tricuspid valves; I10 Essential (primary) hypertension; K21.9 Gastro-esophageal reflux disease without esophagitis; R29.810 Facial weakness; Z79.4 Long term (current) use of insulin; Z82.3 Family history of stroke; Z87.891 Personal history of nicotine dependence; Z90.49 Acquired absence of other specified parts of digestive tract; Z88.0 Allergy status to penicillin; Z88.8 Allergy status to other drugs, medicaments and biological substances
CPT/HCPCS: 36415; 70450; 70551; 80053; 80061; 81001; 82962; 83036; 83735; 84439; 84443; 84484; 85025; 85610; 85730; 87086; 93005; 93306; 93880; 99285; G0378; J1644; J1815; J3475; J7030

== ENCOUNTER 2018-11-30 09:34 | Outpatient (CLI) | payer OTHER | END 2018-11-30 23:59 | disposition home or self-care (01) | LOC: WOUND 09:34 | PROVIDERS: ATTEND Family Medicine | DX: E11.622 Type 2 diabetes mellitus with other skin ulcer (principal); I87.333 Chronic venous hypertension (idiopathic) with ulcer and inflammation of bilateral lower extremity; L97.222 Non-pressure chronic ulcer of left calf with fat layer exposed; L97.212 Non-pressure chronic ulcer of right calf with fat layer exposed; E11.51 Type 2 diabetes mellitus with diabetic peripheral angiopathy without gangrene; E11.65 Type 2 diabetes mellitus with hyperglycemia; E78.5 Hyperlipidemia, unspecified; G89.4 Chronic pain syndrome; E66.9 Obesity, unspecified; F41.9 Anxiety disorder, unspecified; F17.200 Nicotine dependence, unspecified, uncomplicated; K21.9 Gastro-esophageal reflux disease without esophagitis; F32.9 Major depressive disorder, single episode, unspecified; Z99.2 Dependence on renal dialysis; Z79.4 Long term (current) use of insulin; Z88.0 Allergy status to penicillin; Z86.711 Personal history of pulmonary embolism; Z68.24 Body mass index [BMI] 24.0-24.9, adult; Z85.3 Personal history of malignant neoplasm of breast; Z90.49 Acquired absence of other specified parts of digestive tract; Z88.8 Allergy status to other drugs, medicaments and biological substances | CPT/HCPCS: 97597 ==

== ENCOUNTER → 2019-03-04 | Outpatient (CLI) | payer OTHER ==
[~2019-03-04] MED LIST changes: +LOSA50TA2 PO
== END | disposition home or self-care (01) ==
LOC: WOUND 14:36
PROVIDERS: ATTEND Internal Medicine
DX: E11.622 Type 2 diabetes mellitus with other skin ulcer (principal); I87.333 Chronic venous hypertension (idiopathic) with ulcer and inflammation of bilateral lower extremity; L97.222 Non-pressure chronic ulcer of left calf with fat layer exposed; L97.212 Non-pressure chronic ulcer of right calf with fat layer exposed; E11.51 Type 2 diabetes mellitus with diabetic peripheral angiopathy without gangrene; E11.65 Type 2 diabetes mellitus with hyperglycemia; E78.5 Hyperlipidemia, unspecified; G89.4 Chronic pain syndrome; E66.9 Obesity, unspecified; F41.9 Anxiety disorder, unspecified; F17.200 Nicotine dependence, unspecified, uncomplicated; K21.9 Gastro-esophageal reflux disease without esophagitis; F32.9 Major depressive disorder, single episode, unspecified; Z99.2 Dependence on renal dialysis; Z79.4 Long term (current) use of insulin; Z88.0 Allergy status to penicillin; Z90.49 Acquired absence of other specified parts of digestive tract; Z86.711 Personal history of pulmonary embolism; Z68.24 Body mass index [BMI] 24.0-24.9, adult; Z85.3 Personal history of malignant neoplasm of breast; Z88.8 Allergy status to other drugs, medicaments and biological substances
CPT/HCPCS: 97597

== ENCOUNTER 2019-03-05 10:41 | Outpatient (CLI) | payer OTHER | END 2019-03-05 23:59 | disposition home or self-care (01) | LOC: CFH 10:41 | PROVIDERS: ATTEND Family Medicine | DX: Z12.31 Encounter for screening mammogram for malignant neoplasm of breast (principal); N64.89 Other specified disorders of breast; E11.9 Type 2 diabetes mellitus without complications; Z85.828 Personal history of other malignant neoplasm of skin; F17.200 Nicotine dependence, unspecified, uncomplicated; Z80.3 Family history of malignant neoplasm of breast | CPT/HCPCS: 77067 ==

== ENCOUNTER → 2019-03-15 | Outpatient (CLI) | payer OTHER | END | disposition home or self-care (01) | LOC: CVU 12:50 | PROVIDERS: ATTEND Internal Medicine | DX: I70.293 Other atherosclerosis of native arteries of extremities, bilateral legs (principal); I10 Essential (primary) hypertension; E78.5 Hyperlipidemia, unspecified; L97.212 Non-pressure chronic ulcer of right calf with fat layer exposed; E11.622 Type 2 diabetes mellitus with other skin ulcer; F17.200 Nicotine dependence, unspecified, uncomplicated; Z85.828 Personal history of other malignant neoplasm of skin; Z80.3 Family history of malignant neoplasm of breast | CPT/HCPCS: 93922; 93925; 93970 ==

== ENCOUNTER → 2019-03-25 | Outpatient (CLI) | payer OTHER | END | disposition home or self-care (01) | LOC: WOUND 12:56 | PROVIDERS: ATTEND Internal Medicine | DX: I87.333 Chronic venous hypertension (idiopathic) with ulcer and inflammation of bilateral lower extremity (principal); E11.622 Type 2 diabetes mellitus with other skin ulcer; L97.212 Non-pressure chronic ulcer of right calf with fat layer exposed; E11.51 Type 2 diabetes mellitus with diabetic peripheral angiopathy without gangrene; E11.65 Type 2 diabetes mellitus with hyperglycemia; E78.5 Hyperlipidemia, unspecified; G89.4 Chronic pain syndrome; E66.9 Obesity, unspecified; F41.9 Anxiety disorder, unspecified; F17.200 Nicotine dependence, unspecified, uncomplicated; K21.9 Gastro-esophageal reflux disease without esophagitis; F32.9 Major depressive disorder, single episode, unspecified; Z99.2 Dependence on renal dialysis; Z79.4 Long term (current) use of insulin; Z88.0 Allergy status to penicillin; Z90.49 Acquired absence of other specified parts of digestive tract; Z86.711 Personal history of pulmonary embolism; Z68.24 Body mass index [BMI] 24.0-24.9, adult; Z85.3 Personal history of malignant neoplasm of breast; Z88.8 Allergy status to other drugs, medicaments and biological substances | CPT/HCPCS: 99212 ==

== ENCOUNTER 2019-11-25 12:52 | Outpatient (CLI) | payer OTHER ==
[~2019-11-25 12:52] MED LIST changes: -OMEP20CA14 PO; +OMEP20CA20 PO
== END 2019-11-25 23:59 | disposition home or self-care (01) ==
LOC: WOUND 12:52
PROVIDERS: ATTEND Internal Medicine
DX: I87.333 Chronic venous hypertension (idiopathic) with ulcer and inflammation of bilateral lower extremity (principal); E11.622 Type 2 diabetes mellitus with other skin ulcer; L97.212 Non-pressure chronic ulcer of right calf with fat layer exposed; L97.222 Non-pressure chronic ulcer of left calf with fat layer exposed; L03.116 Cellulitis of left lower limb; L03.115 Cellulitis of right lower limb; E11.51 Type 2 diabetes mellitus with diabetic peripheral angiopathy without gangrene; E78.5 Hyperlipidemia, unspecified; G89.4 Chronic pain syndrome; E66.9 Obesity, unspecified; F41.9 Anxiety disorder, unspecified; F17.200 Nicotine dependence, unspecified, uncomplicated; K21.9 Gastro-esophageal reflux disease without esophagitis; F32.9 Major depressive disorder, single episode, unspecified; Z99.2 Dependence on renal dialysis; Z79.4 Long term (current) use of insulin; Z88.0 Allergy status to penicillin; Z90.49 Acquired absence of other specified parts of digestive tract; Z86.711 Personal history of pulmonary embolism; Z85.3 Personal history of malignant neoplasm of breast; Z88.8 Allergy status to other drugs, medicaments and biological substances; Z79.899 Other long term (current) drug therapy; E44.0 Moderate protein-calorie malnutrition; Z68.41 Body mass index [BMI] 40.0-44.9, adult
CPT/HCPCS: 97597; 97598; 99214

== ENCOUNTER → 2019-12-02 | Outpatient (CLI) | payer OTHER | END | disposition home or self-care (01) | LOC: WOUND 13:21 | PROVIDERS: ATTEND Internal Medicine | DX: I87.333 Chronic venous hypertension (idiopathic) with ulcer and inflammation of bilateral lower extremity (principal); E11.622 Type 2 diabetes mellitus with other skin ulcer; L97.212 Non-pressure chronic ulcer of right calf with fat layer exposed; L97.222 Non-pressure chronic ulcer of left calf with fat layer exposed; L03.116 Cellulitis of left lower limb; L03.115 Cellulitis of right lower limb; E11.51 Type 2 diabetes mellitus with diabetic peripheral angiopathy without gangrene; E78.5 Hyperlipidemia, unspecified; G89.4 Chronic pain syndrome; E44.0 Moderate protein-calorie malnutrition; K21.9 Gastro-esophageal reflux disease without esophagitis; E66.9 Obesity, unspecified; F41.9 Anxiety disorder, unspecified; F17.200 Nicotine dependence, unspecified, uncomplicated; F32.9 Major depressive disorder, single episode, unspecified; Z99.2 Dependence on renal dialysis; Z79.4 Long term (current) use of insulin; Z88.0 Allergy status to penicillin; Z90.49 Acquired absence of other specified parts of digestive tract; Z86.711 Personal history of pulmonary embolism; Z85.3 Personal history of malignant neoplasm of breast; Z88.8 Allergy status to other drugs, medicaments and biological substances; Z79.899 Other long term (current) drug therapy; Z68.41 Body mass index [BMI] 40.0-44.9, adult | CPT/HCPCS: 97597; 97598 ==

== ENCOUNTER → 2019-12-09 | Outpatient (CLI) | payer OTHER | END | disposition home or self-care (01) | LOC: WOUND 13:21 | PROVIDERS: ATTEND Internal Medicine | DX: I87.333 Chronic venous hypertension (idiopathic) with ulcer and inflammation of bilateral lower extremity (principal); E11.622 Type 2 diabetes mellitus with other skin ulcer; L97.212 Non-pressure chronic ulcer of right calf with fat layer exposed; L97.222 Non-pressure chronic ulcer of left calf with fat layer exposed; L03.116 Cellulitis of left lower limb; L03.115 Cellulitis of right lower limb; E11.51 Type 2 diabetes mellitus with diabetic peripheral angiopathy without gangrene; E78.5 Hyperlipidemia, unspecified; G89.4 Chronic pain syndrome; E44.0 Moderate protein-calorie malnutrition; K21.9 Gastro-esophageal reflux disease without esophagitis; E66.9 Obesity, unspecified; F41.9 Anxiety disorder, unspecified; F32.9 Major depressive disorder, single episode, unspecified; J44.9 Chronic obstructive pulmonary disease, unspecified; N18.9 Chronic kidney disease, unspecified; F17.200 Nicotine dependence, unspecified, uncomplicated; Z99.2 Dependence on renal dialysis; Z79.4 Long term (current) use of insulin; Z88.0 Allergy status to penicillin; Z88.8 Allergy status to other drugs, medicaments and biological substances; Z90.49 Acquired absence of other specified parts of digestive tract; Z86.711 Personal history of pulmonary embolism; Z85.3 Personal history of malignant neoplasm of breast; Z79.899 Other long term (current) drug therapy; Z68.41 Body mass index [BMI] 40.0-44.9, adult | CPT/HCPCS: 29581; 97597; 97598 ==

== ENCOUNTER 2019-12-16 13:15 | Outpatient (CLI) | payer OTHER | END 2019-12-16 23:59 | disposition home or self-care (01) | LOC: WOUND 13:15 | PROVIDERS: ATTEND Internal Medicine | DX: E11.622 Type 2 diabetes mellitus with other skin ulcer (principal); I87.333 Chronic venous hypertension (idiopathic) with ulcer and inflammation of bilateral lower extremity; L97.222 Non-pressure chronic ulcer of left calf with fat layer exposed; L97.212 Non-pressure chronic ulcer of right calf with fat layer exposed; L03.116 Cellulitis of left lower limb; L03.115 Cellulitis of right lower limb; E11.51 Type 2 diabetes mellitus with diabetic peripheral angiopathy without gangrene; E78.5 Hyperlipidemia, unspecified; G89.4 Chronic pain syndrome; E44.0 Moderate protein-calorie malnutrition; K21.9 Gastro-esophageal reflux disease without esophagitis; E66.9 Obesity, unspecified; F41.9 Anxiety disorder, unspecified; F32.9 Major depressive disorder, single episode, unspecified; J44.9 Chronic obstructive pulmonary disease, unspecified; N18.9 Chronic kidney disease, unspecified; F17.200 Nicotine dependence, unspecified, uncomplicated; Z99.2 Dependence on renal dialysis; Z79.4 Long term (current) use of insulin; Z88.0 Allergy status to penicillin; Z88.8 Allergy status to other drugs, medicaments and biological substances; Z90.49 Acquired absence of other specified parts of digestive tract; Z86.711 Personal history of pulmonary embolism; Z85.3 Personal history of malignant neoplasm of breast; Z79.899 Other long term (current) drug therapy; Z68.41 Body mass index [BMI] 40.0-44.9, adult | CPT/HCPCS: 29581; 97597 ==

== ENCOUNTER 2019-12-23 13:17 | Outpatient (CLI) | payer OTHER | END 2019-12-23 23:59 | disposition home or self-care (01) | LOC: WOUND 13:17 | PROVIDERS: ATTEND Internal Medicine | DX: I87.333 Chronic venous hypertension (idiopathic) with ulcer and inflammation of bilateral lower extremity (principal); E11.622 Type 2 diabetes mellitus with other skin ulcer; L97.212 Non-pressure chronic ulcer of right calf with fat layer exposed; L97.222 Non-pressure chronic ulcer of left calf with fat layer exposed; L03.116 Cellulitis of left lower limb; L03.115 Cellulitis of right lower limb; E11.51 Type 2 diabetes mellitus with diabetic peripheral angiopathy without gangrene; E78.5 Hyperlipidemia, unspecified; G89.4 Chronic pain syndrome; E44.0 Moderate protein-calorie malnutrition; K21.9 Gastro-esophageal reflux disease without esophagitis; E66.9 Obesity, unspecified; F41.9 Anxiety disorder, unspecified; F32.9 Major depressive disorder, single episode, unspecified; J44.9 Chronic obstructive pulmonary disease, unspecified; N18.9 Chronic kidney disease, unspecified; F17.200 Nicotine dependence, unspecified, uncomplicated; Z99.2 Dependence on renal dialysis; Z79.4 Long term (current) use of insulin; Z88.0 Allergy status to penicillin; Z88.8 Allergy status to other drugs, medicaments and biological substances; Z90.49 Acquired absence of other specified parts of digestive tract; Z86.711 Personal history of pulmonary embolism; Z85.3 Personal history of malignant neoplasm of breast; Z79.899 Other long term (current) drug therapy; Z68.41 Body mass index [BMI] 40.0-44.9, adult | CPT/HCPCS: 29581; 97597 ==

== ENCOUNTER → 2019-12-30 | Outpatient (CLI) | payer OTHER | END | disposition home or self-care (01) | LOC: WOUND 13:51 | PROVIDERS: ATTEND Internal Medicine | DX: I87.333 Chronic venous hypertension (idiopathic) with ulcer and inflammation of bilateral lower extremity (principal); E11.622 Type 2 diabetes mellitus with other skin ulcer; L97.212 Non-pressure chronic ulcer of right calf with fat layer exposed; L97.222 Non-pressure chronic ulcer of left calf with fat layer exposed; L03.116 Cellulitis of left lower limb; L03.115 Cellulitis of right lower limb; E11.51 Type 2 diabetes mellitus with diabetic peripheral angiopathy without gangrene; E11.22 Type 2 diabetes mellitus with diabetic chronic kidney disease; N18.9 Chronic kidney disease, unspecified; E78.5 Hyperlipidemia, unspecified; G89.4 Chronic pain syndrome; E44.0 Moderate protein-calorie malnutrition; K21.9 Gastro-esophageal reflux disease without esophagitis; E66.9 Obesity, unspecified; F41.9 Anxiety disorder, unspecified; F32.9 Major depressive disorder, single episode, unspecified; J44.9 Chronic obstructive pulmonary disease, unspecified; F17.200 Nicotine dependence, unspecified, uncomplicated; Z99.2 Dependence on renal dialysis; Z79.4 Long term (current) use of insulin; Z88.0 Allergy status to penicillin; Z88.8 Allergy status to other drugs, medicaments and biological substances; Z90.49 Acquired absence of other specified parts of digestive tract; Z86.711 Personal history of pulmonary embolism; Z85.3 Personal history of malignant neoplasm of breast; Z79.899 Other long term (current) drug therapy; Z68.41 Body mass index [BMI] 40.0-44.9, adult | CPT/HCPCS: 99213 ==

== ENCOUNTER 2020-02-24 18:49 | Inpatient (IN) | payer OTHER ==
[~2020-02-24] VITALS: Ht 172.7 cm; Wt 132.7 kg
--- NOTE | 2020-02-24 18:55 | NUR ---
pt BIB [facility] from home c/o increasing SOB and Diarrhea x2 days. pt has hx of COPD and her baseline O2 at home is generally 3L. pt is currently on 10L NRB by [facility]. pt is tachypneic and has increased WOB. pt denies CP and is in A-fib on radiation monitor, +tachycardic. pt denies hx of arrythmia. pt has a wound to her unbilicus from scratching and has open weeking wounds to RLE. pt reports that she has vascular disease and has not been going to wound care. no family at bedside
--- NOTE | 2020-02-24 19:05 | NUR ---
IV has been started. lab at bedside to draw CXR at bedside
--- NOTE | 2020-02-24 19:20 | NUR ---
EKG has been to bedside. pt continues to have increased WOB and tachycardia and tachypnea. pt speaking 8-9 word sentences. denies CP
[2020-02-24] MEDS ORDERED: SODIUM CHLORIDE 0.9% 1,000ML IVBOLUS ONE ×3 (19:30→20:30)
[2020-02-24] MEDS ORDERED: ALBUTEROL SULFATE 2.5 MG/3 ML NPPB ONE (19:30)
[2020-02-24] MEDS ORDERED: methylPREDNISolone SOD SUCC 125 MG/2 ML IVPush ONE (19:30)
[2020-02-24 19:32] LABS: MEAN CORPUSCULAR HEMOGLOBIN 21.9 pg (27.0-34.8); MEAN PLATELET VOLUME 6.5 fL (7.4-10.4); PLATELET COUNT 290 x10^3/uL (130-400); RED BLOOD COUNT 3.89 x10^6/uL (3.82-5.3); RED CELL DISTRIBUTION WIDTH 20.4 % (9.6-15.2)
[2020-02-24 19:39] LABS: ALANINE AMINOTRANSFERASE 19 U/L (12-78); ALBUMIN 2.8 g/dL (3.4-5.0); ANION GAP 11 mmol/L (5-15); CALCIUM 7.9 mg/dL (8.5-10.1); CHLORIDE 96 mmol/L (98-107); CREATININE 2.28 mg/dL (0.55-1.02)
[2020-02-24 19:43] LABS: ALKALINE PHOSPHATASE 102 U/L (45-117); TOTAL PROTEIN 7.4 g/dL (6.4-8.2); TROPONIN I 0.089 ng/mL (0.000-0.045)
[2020-02-24] MEDS ORDERED: methylPREDNISolone SOD SUCC 125 MG/2 ML ONE (19:50)
--- NOTE | 2020-02-24 19:52 | NUR ---
Dr Monsalve at bedside for cardac US
[2020-02-24 20:02] LABS: MD YES; MEAN CORPUSCULAR HGB CONC 29.9 g/dL (32.4-35.8)
[2020-02-24 20:05] LABS: ANISOCYTOSIS 1+; BANDS%(MANUAL) 10 % (0-7); HYPOCHROMIA 2+; LYMPH#(MANUAL) 0.26 x10^3/uL (1-3.4); LYMPHS% (MANUAL) 1 % (22-44); MICROCYTOSIS 2+; MONOS#(MANUAL) 0.78 x10^3/uL (0.3-2.7); MONOS% (MANUAL) 3 % (2-9); MYELOCYTES# (MANUAL) 0.26 x10^3/uL (0-0); MYELOCYTES% (MANUAL) 1 % (0-0); POLYCHROMASIA 1+; SEGS% (MANUAL) 85 % (42-75)
[2020-02-24 20:06] LABS: <PLATELET ESTIMATE> ADEQUATE; <PLT MORPHOLOGY> NORMAL PLT MORPH
--- NOTE | 2020-02-24 20:07 | NUR ---
pt moved from room 24 to room 39 report to Srinivasa HEWITT
[2020-02-24] MEDS ORDERED: CEFTRIAXONE PMX 1GM/50ML 50 ML ONE (20:13)
[2020-02-24] MEDS ORDERED: ALBUTEROL SULFATE 2.5 MG/3 ML ONE (20:13)
[2020-02-24] MEDS ORDERED: CEFTRIAXONE PMX 1GM/50ML 50 ML IV ONE (20:30)
[2020-02-24] MEDS ORDERED: AZITHROMYCIN 500 MG in SODIUM CHLORIDE 0.9% 250 ML IV ONE (20:30)
--- NOTE | 2020-02-24 20:30 | NUR ---
pt medicated per emar, pt speaking 5-6 word sentences, pt a/o x4
--- NOTE | 2020-02-24 21:46 | NUR ---
PT RESTING IN BED ON NRB MASK AT 10L, PT WHEN ASK HOW SHE IS DOING SAYS "FINE, JUST A LITTLE TIRED" PT PROVIDED A BLANKET AT PT REQUEST
[2020-02-25] MEDS ORDERED: INSULIN GLARGINE 100 UNITS/ML, PEN SQ-INSULIN SCH (01:00)
[2020-02-25] MEDS ORDERED: SODIUM CHLORIDE 0.9%, 500ML IVBOLUS PRN ×2 (01:00)
[2020-02-25] MEDS ORDERED: ONDANSETRON 2MG/ML, 2ML IVPB PRN (01:00)
[2020-02-25] MEDS ORDERED: PHARMACY MAY ADJ FOR RENAL FX MC PRN (01:00)
[2020-02-25] MEDS ORDERED: ACETAMINOPHEN 650 MG SUPP PR PRN (01:00)
[2020-02-25] MEDS ORDERED: MORPHINE SULFATE 4 MG/ML, 1ML IV PRN (01:00)
[2020-02-25] MEDS ORDERED: ACETAMINOPHEN 650 MG/20.3 ML UDC PO PRN (01:00)
--- NOTE | 2020-02-25 01:15 | NUR ---
REPORT GIVEN TO SALAZAR HEWITT IN ICU
[2020-02-25] MEDS ORDERED: methylPREDNISolone SOD SUCC 40 MG/ML IV SCH (02:00)
[2020-02-25] MEDS ORDERED: METOPROLOL 1 MG/ML, 5ML IVPush ONE (02:30)
[2020-02-25] MEDS: LOSARTAN 50MG TABLET PO SCH ×2 (02:44→21:10)
[2020-02-25] MEDS: HEPARIN 5,000 UNITS/ML, 1ML SQ SCH ×3 (02:45→16:28)
[2020-02-25 04:00] VITALS: BP 106/58
[2020-02-25 05:03] LABS: MEAN CORPUSCULAR HEMOGLOBIN 22.3 pg (27.0-34.8); MEAN PLATELET VOLUME 6.9 fL (7.4-10.4); PLATELET COUNT 260 x10^3/uL (130-400); RED BLOOD COUNT 3.72 x10^6/uL (3.82-5.3); RED CELL DISTRIBUTION WIDTH 20.4 % (9.6-15.2)
[2020-02-25 05:12] LABS: CHLORIDE 98 mmol/L (98-107)
[2020-02-25] MEDS ORDERED: VANCOMYCIN PER PHARMACY MC PRN (05:30)
[2020-02-25 05:35] LABS: ALANINE AMINOTRANSFERASE 18 U/L (12-78); ALBUMIN 2.5 g/dL (3.4-5.0); ALKALINE PHOSPHATASE 82 U/L (45-117); ANION GAP 7 mmol/L (5-15); BILIRUBIN,TOTAL 0.8 mg/dL (0.2-1.0); CALCIUM 7.4 mg/dL (8.5-10.1); CREATININE 2.16 mg/dL (0.55-1.02)
[2020-02-25 05:48] LABS: MD YES
[2020-02-25 05:49] LABS: <PLATELET ESTIMATE> ADEQUATE; <PLT MORPHOLOGY> NORMAL PLT MORPH; ANISOCYTOSIS 1+; BAND#(MANUAL) 1.37 x10^3/uL; BANDS%(MANUAL) 6 % (0-7); HYPOCHROMIA 1+; LYMPH#(MANUAL) 0.46 x10^3/uL (1-3.4); LYMPHS% (MANUAL) 2 % (22-44); MICROCYTOSIS 1+; MONOS#(MANUAL) 0.46 x10^3/uL (0.3-2.7); MONOS% (MANUAL) 2 % (2-9); OVALOCYTES 1+; POLYCHROMASIA 1+; SEG#(MANUAL) 20.52 x10^3/uL (1.8-6.8); SEGS% (MANUAL) 90 % (42-75)
[2020-02-25] MEDS ORDERED: PHARMACOKINETIC CONSULTATION MC ONE (06:00)
[2020-02-25] MEDS ORDERED: PHARMACOKINETIC MONITORING MC PRN (06:00)
[2020-02-25] MEDS ORDERED: VANCOMYCIN 2,500 MG in SODIUM CHLORIDE 0.9% 500 ML IV ONE (06:00)
[2020-02-25] MEDS: METOPROLOL TARTRATE 25 MG TAB PO SCH ×2 (06:05→18:12)
[2020-02-25 06:23] VITALS: BP 133/63
[2020-02-25] MEDS: INSULIN GLARGINE 100 UNITS/ML, PEN SQ-INSULIN SCH ×2 (07:33→21:11)
[2020-02-25] MEDS: OMEPRAZOLE 20 MG CAPSULE.DR PO SCH ×3 (07:57→16:28)
[2020-02-25] MEDS: INSULIN REGULAR 100 UNITS/ML, 3ML VIAL SQ-INSULIN SCH ×4 (08:04→21:11)
[2020-02-25] MEDS: ALBUTEROL HFA 90 MCG/SPRAY INH SCH ×3 (11:14→23:00)
[2020-02-25 18:12] VITALS: BP 91/59
[2020-02-25] MEDS ORDERED: AZITHROMYCIN 500 MG TABLET PO SCH (20:30)
[2020-02-25] MEDS ORDERED: CEFTRIAXONE PMX 1GM/50ML 50 ML IV SCH (20:30)
[2020-02-25] MEDS: PAROXETINE 20 MG TABLET PO SCH (21:11)
[2020-02-25] MEDS: PRAVASTATIN 40 MG TABLET PO SCH (21:11)
[2020-02-26] MEDS: HEPARIN 5,000 UNITS/ML, 1ML SQ SCH ×3 (01:19→15:57)
[2020-02-26 03:17] VITALS: BP 107/72
[2020-02-26] MEDS: ALBUTEROL HFA 90 MCG/SPRAY INH SCH ×4 (03:28→18:21)
[2020-02-26 06:00] LABS: ANION GAP 6 mmol/L (5-15); CHLORIDE 100 mmol/L (98-107); CREATININE 2.38 mg/dL (0.55-1.02)
[2020-02-26 06:02] LABS: VANCOMYCIN,RANDOM 19.9 mcg/mL
[2020-02-26 06:05] LABS: BASOPHILS % (AUTO) 0 % (0-1); EOSINOPHILS % (AUTO) 0 % (1-7); LYMPHOCYTES % (AUTO) 5 % (22-44); MEAN CORPUSCULAR HEMOGLOBIN 22.5 pg (27.0-34.8); MEAN CORPUSCULAR HGB CONC 30.7 g/dL (32.4-35.8); MEAN PLATELET VOLUME 7.1 fL (7.4-10.4); MONOCYTES % (AUTO) 5 % (2-9); NEUTROPHILS % (AUTO) 90 % (42-75); PLATELET COUNT 235 x10^3/uL (130-400); RED BLOOD COUNT 3.63 x10^6/uL (3.82-5.3); RED CELL DISTRIBUTION WIDTH 20.2 % (9.6-15.2)
[2020-02-26 06:51] LABS: MD SCAN
[2020-02-26] MEDS: INSULIN REGULAR 100 UNITS/ML, 3ML VIAL SQ-INSULIN SCH ×4 (08:49→20:48)
[2020-02-26] MEDS: INSULIN GLARGINE 100 UNITS/ML, PEN SQ-INSULIN SCH ×2 (08:51→20:48)
[2020-02-26] MEDS: METOPROLOL TARTRATE 25 MG TAB PO SCH ×2 (08:52→20:43)
[2020-02-26] MEDS: OMEPRAZOLE 20 MG CAPSULE.DR PO SCH ×3 (08:52→15:56)
[2020-02-26] MEDS: TIOTROPIUM BROMIDE 18 MCG/INH INH SCH (09:00)
[2020-02-26 09:03] VITALS: BP 106/72
[2020-02-26 12:16] VITALS: BP 101/67
[2020-02-26] MEDS ORDERED: FUROSEMIDE 20 MG/2 ML IV ONE (13:00)
[2020-02-26] MEDS: CEFTRIAXONE PMX 1GM/50ML 50 ML IV SCH (14:27)
[2020-02-26 14:32] VITALS: BP 98/65
[2020-02-26 15:55] VITALS: BP 101/67
[2020-02-26] MEDS ORDERED: FUROSEMIDE 20 MG/2 ML IV SCH (17:00)
[2020-02-26] MEDS: AMLODIPINE 5 MG TABLET PO SCH (20:42)
[2020-02-26] MEDS: PAROXETINE 20 MG TABLET PO SCH (20:43)
[2020-02-26] MEDS: PRAVASTATIN 40 MG TABLET PO SCH (20:43)
[2020-02-26] MEDS: LOSARTAN 50MG TABLET PO SCH (20:43)
[2020-02-27] MEDS: HEPARIN 5,000 UNITS/ML, 1ML SQ SCH ×3 (02:03→17:02)
[2020-02-27] MEDS: ALBUTEROL HFA 90 MCG/SPRAY INH SCH ×4 (02:03→19:59)
[2020-02-27] MEDS: CEFTRIAXONE PMX 1GM/50ML 50 ML IV SCH ×2 (02:30→14:04)
[2020-02-27 03:57] LABS: BASOPHILS % (AUTO) 0 % (0-1); EOSINOPHILS % (AUTO) 0 % (1-7); LYMPHOCYTES % (AUTO) 5 % (22-44); MEAN CORPUSCULAR HEMOGLOBIN 22.4 pg (27.0-34.8); MEAN CORPUSCULAR HGB CONC 30.2 g/dL (32.4-35.8); MEAN PLATELET VOLUME 7.6 fL (7.4-10.4); MONOCYTES % (AUTO) 4 % (2-9); NEUTROPHILS % (AUTO) 91 % (42-75); PLATELET COUNT 255 x10^3/uL (130-400); RED BLOOD COUNT 3.77 x10^6/uL (3.82-5.3); RED CELL DISTRIBUTION WIDTH 20.6 % (9.6-15.2)
[2020-02-27 04:01] LABS: ANION GAP 6 mmol/L (5-15); CHLORIDE 100 mmol/L (98-107); CREATININE 2.54 mg/dL (0.55-1.02)
[2020-02-27 04:18] LABS: MD SCAN
[2020-02-27] MEDS: METOPROLOL TARTRATE 25 MG TAB PO SCH ×2 (06:12→17:05)
[2020-02-27] MEDS: OMEPRAZOLE 20 MG CAPSULE.DR PO SCH ×3 (06:12→21:00)
[2020-02-27] MEDS: CLINDAMYCIN PMX 900MG/50ML 50 ML IV SCH ×3 (07:17→22:57)
[2020-02-27] MEDS: INSULIN REGULAR 100 UNITS/ML, 3ML VIAL SQ-INSULIN SCH ×4 (08:37→22:07)
[2020-02-27] MEDS: INSULIN GLARGINE 100 UNITS/ML, PEN SQ-INSULIN SCH ×2 (08:38→22:07)
[2020-02-27] MEDS: TIOTROPIUM BROMIDE 18 MCG/INH INH SCH (09:00)
[2020-02-27 19:00] VITALS: BP 91/60
[2020-02-27] MEDS: PAROXETINE 20 MG TABLET PO SCH (22:04)
[2020-02-27] MEDS: PRAVASTATIN 40 MG TABLET PO SCH (22:04)
[2020-02-27] MEDS: AMLODIPINE 5 MG TABLET PO SCH (22:04)
[2020-02-27] MEDS: LOSARTAN 50MG TABLET PO SCH (22:05)
[2020-02-28] MEDS: HEPARIN 5,000 UNITS/ML, 1ML SQ SCH ×3 (01:50→17:40)
[2020-02-28 01:51] VITALS: BP 108/77
[2020-02-28] MEDS: CEFTRIAXONE PMX 1GM/50ML 50 ML IV SCH ×2 (01:51→14:06)
[2020-02-28] MEDS: ALBUTEROL HFA 90 MCG/SPRAY INH SCH ×4 (03:00→18:36)
[2020-02-28 05:26] LABS: ANION GAP 6 mmol/L (5-15); CALCIUM 7.8 mg/dL (8.5-10.1); CHLORIDE 104 mmol/L (98-107)
[2020-02-28 05:28] LABS: BASOPHILS % (AUTO) 0 % (0-1); EOSINOPHILS % (AUTO) 1 % (1-7); LYMPHOCYTES % (AUTO) 7 % (22-44); MEAN CORPUSCULAR HEMOGLOBIN 22.3 pg (27.0-34.8); MEAN CORPUSCULAR HGB CONC 30.2 g/dL (32.4-35.8); MEAN PLATELET VOLUME 7.6 fL (7.4-10.4); MONOCYTES % (AUTO) 5 % (2-9); NEUTROPHILS % (AUTO) 86 % (42-75); PLATELET COUNT 244 x10^3/uL (130-400); RED BLOOD COUNT 3.83 x10^6/uL (3.82-5.3)
[2020-02-28 06:10] LABS: MD SCAN
[2020-02-28 06:21] VITALS: BP 104/67
[2020-02-28] MEDS: METOPROLOL TARTRATE 25 MG TAB PO SCH ×2 (06:24→17:40)
[2020-02-28] MEDS: CLINDAMYCIN PMX 900MG/50ML 50 ML IV SCH ×3 (06:25→22:14)
[2020-02-28] MEDS: INSULIN REGULAR 100 UNITS/ML, 3ML VIAL SQ-INSULIN SCH ×4 (07:00→21:00)
[2020-02-28] MEDS: TIOTROPIUM BROMIDE 18 MCG/INH INH SCH (09:00)
[2020-02-28] MEDS: INSULIN GLARGINE 100 UNITS/ML, PEN SQ-INSULIN SCH ×2 (09:15→22:10)
[2020-02-28] MEDS: OMEPRAZOLE 20 MG CAPSULE.DR PO SCH ×2 (09:15→22:11)
[2020-02-28 14:52] VITALS: BP 118/76
[2020-02-28 18:51] VITALS: BP 108/67
[2020-02-28] MEDS: AMLODIPINE 5 MG TABLET PO SCH (22:11)
[2020-02-28] MEDS: PAROXETINE 20 MG TABLET PO SCH (22:11)
[2020-02-28] MEDS: PRAVASTATIN 40 MG TABLET PO SCH (22:11)
[2020-02-28] MEDS: LOSARTAN 50MG TABLET PO SCH (22:12)
[2020-02-29 00:33] VITALS: BP 107/70
[2020-02-29] MEDS: HEPARIN 5,000 UNITS/ML, 1ML SQ SCH ×3 (01:50→18:12)
[2020-02-29] MEDS: CEFTRIAXONE PMX 1GM/50ML 50 ML IV SCH ×2 (01:50→14:07)
[2020-02-29] MEDS: ALBUTEROL HFA 90 MCG/SPRAY INH SCH ×4 (02:25→19:04)
[2020-02-29 05:31] LABS: BASOPHILS % (AUTO) 0 % (0-1); EOSINOPHILS % (AUTO) 1 % (1-7); LYMPHOCYTES % (AUTO) 9 % (22-44); MEAN CORPUSCULAR HEMOGLOBIN 22.1 pg (27.0-34.8); MEAN CORPUSCULAR HGB CONC 30.3 g/dL (32.4-35.8); MEAN PLATELET VOLUME 7.7 fL (7.4-10.4); MONOCYTES % (AUTO) 8 % (2-9); NEUTROPHILS % (AUTO) 81 % (42-75); PLATELET COUNT 247 x10^3/uL (130-400); RED BLOOD COUNT 3.84 x10^6/uL (3.82-5.3); RED CELL DISTRIBUTION WIDTH 20.6 % (9.6-15.2)
[2020-02-29 05:32] LABS: ANION GAP 5 mmol/L (5-15); CALCIUM 7.9 mg/dL (8.5-10.1); CHLORIDE 107 mmol/L (98-107); CREATININE 1.89 mg/dL (0.55-1.02)
[2020-02-29] MEDS: CLINDAMYCIN PMX 900MG/50ML 50 ML IV SCH ×3 (06:09→23:47)
[2020-02-29] MEDS: METOPROLOL TARTRATE 25 MG TAB PO SCH ×2 (06:09→18:13)
[2020-02-29 06:35] LABS: MD SCAN
[2020-02-29 06:40] VITALS: BP 120/71
[2020-02-29] MEDS: INSULIN REGULAR 100 UNITS/ML, 3ML VIAL SQ-INSULIN SCH ×4 (07:00→21:00)
[2020-02-29] MEDS: INSULIN GLARGINE 100 UNITS/ML, PEN SQ-INSULIN SCH ×2 (08:13→21:00)
[2020-02-29] MEDS: OMEPRAZOLE 20 MG CAPSULE.DR PO SCH ×2 (08:14→21:45)
[2020-02-29] MEDS: TIOTROPIUM BROMIDE 18 MCG/INH INH SCH (08:22)
[2020-02-29 13:53] VITALS: BP 111/70
[2020-02-29] MEDS ORDERED: BISACODYL 10 MG SUPP PR PRN (15:00)
[2020-02-29] MEDS ORDERED: POLYETHYLENE GLYCOL 17 GM PACKET PO PRN (15:00)
[2020-02-29] MEDS ORDERED: SENNA/DOCUSATE TABLET PO PRN (15:00)
[2020-02-29 19:18] VITALS: BP 108/67
[2020-02-29] MEDS: AMLODIPINE 5 MG TABLET PO SCH (21:45)
[2020-02-29] MEDS: LOSARTAN 50MG TABLET PO SCH (21:45)
[2020-02-29] MEDS: PRAVASTATIN 40 MG TABLET PO SCH (21:45)
[2020-02-29] MEDS: PAROXETINE 20 MG TABLET PO SCH (21:45)
[2020-03-01 01:49] VITALS: BP 130/71
[2020-03-01] MEDS: ALBUTEROL HFA 90 MCG/SPRAY INH SCH ×4 (02:00→20:10)
[2020-03-01] MEDS: CEFTRIAXONE PMX 1GM/50ML 50 ML IV SCH ×2 (02:25→14:28)
[2020-03-01] MEDS: HEPARIN 5,000 UNITS/ML, 1ML SQ SCH ×3 (02:25→17:34)
[2020-03-01 05:36] LABS: ANION GAP 8 mmol/L (5-15); CALCIUM 8.2 mg/dL (8.5-10.1); CHLORIDE 110 mmol/L (98-107); CREATININE 1.66 mg/dL (0.55-1.02)
[2020-03-01] MEDS: CLINDAMYCIN PMX 900MG/50ML 50 ML IV SCH ×2 (06:11→15:09)
[2020-03-01] MEDS: METOPROLOL TARTRATE 25 MG TAB PO SCH ×2 (06:11→17:34)
[2020-03-01 06:15] VITALS: BP 126/80
[2020-03-01] MEDS: INSULIN REGULAR 100 UNITS/ML, 3ML VIAL SQ-INSULIN SCH ×4 (07:00→21:00)
[2020-03-01 08:16] VITALS: BP 121/77
[2020-03-01] MEDS: TIOTROPIUM BROMIDE 18 MCG/INH INH SCH (08:32)
[2020-03-01] MEDS: LACTULOSE 20 GM/30 ML UDC PO SCH ×2 (09:05→20:41)
[2020-03-01] MEDS: OMEPRAZOLE 20 MG CAPSULE.DR PO SCH ×2 (09:05→20:41)
[2020-03-01] MEDS: FUROSEMIDE 20 MG/2 ML IV SCH ×2 (09:06→17:34)
[2020-03-01] MEDS: INSULIN GLARGINE 100 UNITS/ML, PEN SQ-INSULIN SCH ×2 (09:07→21:00)
[2020-03-01 14:17] VITALS: BP 117/75
[2020-03-01 18:53] VITALS: BP 114/76
[2020-03-01] MEDS: LOSARTAN 50MG TABLET PO SCH (20:41)
[2020-03-01] MEDS: AMLODIPINE 5 MG TABLET PO SCH (20:41)
[2020-03-01] MEDS: PRAVASTATIN 40 MG TABLET PO SCH (20:41)
[2020-03-01] MEDS: PAROXETINE 20 MG TABLET PO SCH (20:41)
[2020-03-02 01:30] VITALS: BP 136/84
[2020-03-02] MEDS: HEPARIN 5,000 UNITS/ML, 1ML SQ SCH ×3 (01:59→16:09)
[2020-03-02] MEDS: CEFTRIAXONE PMX 1GM/50ML 50 ML IV SCH (01:59)
[2020-03-02] MEDS: ALBUTEROL HFA 90 MCG/SPRAY INH SCH ×4 (02:20→19:45)
[2020-03-02 05:22] VITALS: BP 134/84
[2020-03-02] MEDS: METOPROLOL TARTRATE 25 MG TAB PO SCH ×2 (05:22→16:09)
[2020-03-02 05:54] LABS: CHLORIDE 109 mmol/L (98-107)
[2020-03-02 05:58] LABS: ANION GAP 6 mmol/L (5-15); CREATININE 1.52 mg/dL (0.55-1.02)
[2020-03-02] MEDS: INSULIN REGULAR 100 UNITS/ML, 3ML VIAL SQ-INSULIN SCH ×4 (07:00→21:24)
[2020-03-02 08:00] VITALS: BP 128/82
[2020-03-02] MEDS: TIOTROPIUM BROMIDE 18 MCG/INH INH SCH (09:00)
[2020-03-02] MEDS: OMEPRAZOLE 20 MG CAPSULE.DR PO SCH ×2 (09:28→21:36)
[2020-03-02] MEDS: GUAIFENESIN 200 MG TABLET PO SCH ×3 (09:28→21:36)
[2020-03-02] MEDS: LACTULOSE 20 GM/30 ML UDC PO SCH ×2 (09:28→21:35)
[2020-03-02] MEDS: FUROSEMIDE 20 MG/2 ML IV SCH ×3 (09:30→21:37)
[2020-03-02] MEDS: INSULIN GLARGINE 100 UNITS/ML, PEN SQ-INSULIN SCH ×2 (09:45→21:24)
[2020-03-02 13:07] VITALS: BP 118/74
[2020-03-02] MEDS: CEFTRIAXONE PMX 2GM/50ML 50 ML IVPB SCH (16:08)
[2020-03-02 19:00] VITALS: BP 127/76
[2020-03-02] MEDS: PAROXETINE 20 MG TABLET PO SCH (21:36)
[2020-03-02] MEDS: AMLODIPINE 5 MG TABLET PO SCH (21:36)
[2020-03-02] MEDS: PRAVASTATIN 40 MG TABLET PO SCH (21:36)
[2020-03-02] MEDS: LOSARTAN 50MG TABLET PO SCH (21:37)
[2020-03-03 01:07] VITALS: BP 135/86
[2020-03-03] MEDS: HEPARIN 5,000 UNITS/ML, 1ML SQ SCH ×3 (01:11→17:53)
[2020-03-03] MEDS: ALBUTEROL HFA 90 MCG/SPRAY INH SCH ×4 (02:30→19:40)
[2020-03-03] MEDS: METOPROLOL TARTRATE 25 MG TAB PO SCH ×2 (05:26→17:51)
[2020-03-03] MEDS: GUAIFENESIN 200 MG TABLET PO SCH ×4 (05:26→21:37)
[2020-03-03 06:01] LABS: BASOPHILS % (AUTO) 1 % (0-1); EOSINOPHILS % (AUTO) 2 % (1-7); LYMPHOCYTES % (AUTO) 12 % (22-44); MEAN CORPUSCULAR HEMOGLOBIN 21.8 pg (27.0-34.8); MEAN CORPUSCULAR HGB CONC 30.2 g/dL (32.4-35.8); MEAN PLATELET VOLUME 7.4 fL (7.4-10.4); MONOCYTES % (AUTO) 7 % (2-9); NEUTROPHILS % (AUTO) 79 % (42-75); PLATELET COUNT 267 x10^3/uL (130-400); RED CELL DISTRIBUTION WIDTH 20.6 % (9.6-15.2)
[2020-03-03 06:16] LABS: CHLORIDE 108 mmol/L (98-107)
[2020-03-03 06:23] LABS: ALANINE AMINOTRANSFERASE 11 U/L (12-78); ALBUMIN 2.4 g/dL (3.4-5.0); ALKALINE PHOSPHATASE 79 U/L (45-117); ANION GAP 7 mmol/L (5-15); BILIRUBIN,TOTAL 0.4 mg/dL (0.2-1.0); CREATININE 1.28 mg/dL (0.55-1.02); TOTAL PROTEIN 6.7 g/dL (6.4-8.2)
[2020-03-03 06:34] LABS: MD SCAN
[2020-03-03] MEDS: TIOTROPIUM BROMIDE 18 MCG/INH INH SCH ×2 (07:00→08:37)
[2020-03-03] MEDS: INSULIN REGULAR 100 UNITS/ML, 3ML VIAL SQ-INSULIN SCH ×4 (07:00→21:00)
[2020-03-03 07:22] VITALS: BP 133/82
[2020-03-03] MEDS: OMEPRAZOLE 20 MG CAPSULE.DR PO SCH ×2 (08:19→21:37)
[2020-03-03] MEDS: FUROSEMIDE 20 MG/2 ML IV SCH ×2 (08:19→21:38)
[2020-03-03] MEDS: LACTULOSE 20 GM/30 ML UDC PO SCH ×2 (08:20→21:25)
[2020-03-03] MEDS: INSULIN GLARGINE 100 UNITS/ML, PEN SQ-INSULIN SCH ×3 (08:45→21:24)
[2020-03-03 13:34] VITALS: BP 112/74
[2020-03-03] MEDS: CEFTRIAXONE PMX 2GM/50ML 50 ML IVPB SCH (14:33)
[2020-03-03 18:52] VITALS: BP 132/84
[2020-03-03] MEDS: PAROXETINE 20 MG TABLET PO SCH (21:37)
[2020-03-03] MEDS: PRAVASTATIN 40 MG TABLET PO SCH (21:37)
[2020-03-04 00:18] VITALS: BP 142/88
[2020-03-04] MEDS: HEPARIN 5,000 UNITS/ML, 1ML SQ SCH ×3 (01:57→18:17)
[2020-03-04] MEDS: ALBUTEROL HFA 90 MCG/SPRAY INH SCH ×4 (03:00→20:17)
[2020-03-04] MEDS: METOPROLOL TARTRATE 25 MG TAB PO SCH ×2 (05:46→18:17)
[2020-03-04] MEDS: GUAIFENESIN 200 MG TABLET PO SCH ×4 (05:46→21:54)
[2020-03-04 06:00] LABS: BASOPHILS % (AUTO) 1 % (0-1); EOSINOPHILS % (AUTO) 2 % (1-7); LYMPHOCYTES % (AUTO) 10 % (22-44); MEAN CORPUSCULAR HEMOGLOBIN 21.8 pg (27.0-34.8); MEAN CORPUSCULAR HGB CONC 30.1 g/dL (32.4-35.8); MEAN PLATELET VOLUME 7.4 fL (7.4-10.4); MONOCYTES % (AUTO) 7 % (2-9); NEUTROPHILS % (AUTO) 81 % (42-75); PLATELET COUNT 298 x10^3/uL (130-400); RED BLOOD COUNT 4.18 x10^6/uL (3.82-5.3); RED CELL DISTRIBUTION WIDTH 20.6 % (9.6-15.2)
[2020-03-04 06:09] LABS: MD NO
[2020-03-04 06:13] LABS: ALBUMIN 2.4 g/dL (3.4-5.0); ANION GAP 7 mmol/L (5-15); CALCIUM 8.2 mg/dL (8.5-10.1); CHLORIDE 108 mmol/L (98-107)
[2020-03-04 06:17] LABS: ALANINE AMINOTRANSFERASE 9 U/L (12-78); ALKALINE PHOSPHATASE 76 U/L (45-117); BILIRUBIN,TOTAL 0.4 mg/dL (0.2-1.0); CREATININE 1.26 mg/dL (0.55-1.02); TOTAL PROTEIN 6.5 g/dL (6.4-8.2)
[2020-03-04] MEDS: INSULIN REGULAR 100 UNITS/ML, 3ML VIAL SQ-INSULIN SCH ×4 (07:00→21:36)
[2020-03-04] MEDS: LACTULOSE 20 GM/30 ML UDC PO SCH ×2 (07:57→21:36)
[2020-03-04 08:00] VITALS: BP 143/79
[2020-03-04] MEDS: FUROSEMIDE 20 MG/2 ML IV SCH ×2 (08:17→21:55)
[2020-03-04] MEDS: LOSARTAN 25MG TABLET PO SCH (08:17)
[2020-03-04] MEDS: OMEPRAZOLE 20 MG CAPSULE.DR PO SCH ×2 (08:17→21:54)
[2020-03-04] MEDS: TIOTROPIUM BROMIDE 18 MCG/INH INH SCH (09:00)
[2020-03-04 13:20] VITALS: BP 118/75
[2020-03-04] MEDS: CEFTRIAXONE PMX 2GM/50ML 50 ML IVPB SCH (14:35)
[2020-03-04 18:40] VITALS: BP 116/76
[2020-03-04] MEDS: PRAVASTATIN 40 MG TABLET PO SCH (21:54)
[2020-03-04] MEDS: PAROXETINE 20 MG TABLET PO SCH (21:55)
[2020-03-05 00:21] VITALS: BP 114/75
[2020-03-05] MEDS: ALBUTEROL HFA 90 MCG/SPRAY INH SCH ×3 (03:00→15:08)
[2020-03-05] MEDS: METOPROLOL TARTRATE 25 MG TAB PO SCH ×2 (06:26→17:05)
[2020-03-05] MEDS: GUAIFENESIN 200 MG TABLET PO SCH ×3 (06:26→17:05)
[2020-03-05] MEDS: HEPARIN 5,000 UNITS/ML, 1ML SQ SCH ×2 (06:27→13:21)
[2020-03-05 08:21] VITALS: BP 149/89
[2020-03-05] MEDS: INSULIN REGULAR 100 UNITS/ML, 3ML VIAL SQ-INSULIN SCH ×3 (08:42→17:05)
[2020-03-05] MEDS: OMEPRAZOLE 20 MG CAPSULE.DR PO SCH (08:52)
[2020-03-05] MEDS: LOSARTAN 25MG TABLET PO SCH (08:52)
[2020-03-05] MEDS: LACTULOSE 20 GM/30 ML UDC PO SCH (08:53)
[2020-03-05] MEDS: FUROSEMIDE 20 MG/2 ML IV SCH (08:53)
[2020-03-05] MEDS: TIOTROPIUM BROMIDE 18 MCG/INH INH SCH (09:15)
[2020-03-05] MEDS: CEFTRIAXONE PMX 2GM/50ML 50 ML IVPB SCH (13:21)
[2020-03-05 14:10] VITALS: BP 148/79
[2020-03-05] MEDS ORDERED: DOXY100T23 PO (15:01)
[2020-03-05] MEDS ORDERED: FURO40TA6 PO (15:04)
== END 2020-03-05 20:10 | DRG 871 ==
LOC: ED 21:17 → EDIP 23:08 → ICU 02-25 01:11 → CCU 02-26 19:55 → 3N 02-27 19:16
PROVIDERS: ADMIT Internal Medicine; ATTEND Internal Medicine
DX: A41.9 Sepsis, unspecified organism (principal); I50.31 Acute diastolic (congestive) heart failure; J15.3 Pneumonia due to streptococcus, group B; J96.01 Acute respiratory failure with hypoxia; N17.0 Acute kidney failure with tubular necrosis; R65.21 Severe sepsis with septic shock; E87.1 Hypo-osmolality and hyponatremia; I13.0 Hypertensive heart and chronic kidney disease with heart failure and stage 1 through stage 4 chronic kidney disease, or unspecified chronic kidney disease; J44.0 Chronic obstructive pulmonary disease with (acute) lower respiratory infection; J44.1 Chronic obstructive pulmonary disease with (acute) exacerbation; Z68.41 Body mass index [BMI] 40.0-44.9, adult; D50.9 Iron deficiency anemia, unspecified; E11.22 Type 2 diabetes mellitus with diabetic chronic kidney disease; E11.65 Type 2 diabetes mellitus with hyperglycemia; E66.9 Obesity, unspecified; E78.5 Hyperlipidemia, unspecified; E87.8 Other disorders of electrolyte and fluid balance, not elsewhere classified; F32.9 Major depressive disorder, single episode, unspecified; G47.33 Obstructive sleep apnea (adult) (pediatric); I27.20 Pulmonary hypertension, unspecified; I87.2 Venous insufficiency (chronic) (peripheral); K21.9 Gastro-esophageal reflux disease without esophagitis; N18.31 Chronic kidney disease, stage 3a; Z20.828 Contact with and (suspected) exposure to other viral communicable diseases; Z88.0 Allergy status to penicillin; Z88.8 Allergy status to other drugs, medicaments and biological substances
CPT/HCPCS: 36415; 36600; 84145; 96372; 96374; 96375; 99291; J7613; 71045; 80048; 80053; 80202; 82728; 82803; 82962; 83540; 83550; 83605; 83735; 83880; 84484; 85025; 87040; 87081; 87086; 87147; 87181; 87635; 93005; 93306; 94640; G0378; J0456; J0696; J1644; J1815; J3370; J1940; J2920; J2930; J7030; J7040; J7050

== ENCOUNTER 2020-03-29 03:32 | Emergency (ER) | payer OTHER ==
[~2020-03-29] VITALS: Ht 172.7 cm; Wt 128.0 kg
[~2020-03-29 03:32] MED LIST changes: +DOXY100T23 PO; +FURO40TA6 PO
[2020-03-29 03:39] VITALS: BP 130/79
--- NOTE | 2020-03-29 03:45 | NUR ---
Pt BIBA with complaints of feet pain/discolor per family. Also has elevated blood sugar. Recently discharged from here. Provider at bedside. Patient offers no further complaints at this time. Call light within reach
--- NOTE | 2020-03-29 03:53 | NUR ---
Patient noted to have a sore on the back of her right calf. Per patient family has been helping to keep it clean and wrapping it.
[2020-03-29 04:55] LABS: BASOPHILS % (AUTO) 2 % (0-1); EOSINOPHILS % (AUTO) 2 % (1-7); LYMPHOCYTES % (AUTO) 18 % (22-44); MEAN CORPUSCULAR HEMOGLOBIN 23.7 pg (27.0-34.8); MEAN CORPUSCULAR HGB CONC 31.7 g/dL (32.4-35.8); MEAN PLATELET VOLUME 6.3 fL (7.4-10.4); MONOCYTES % (AUTO) 6 % (2-9); NEUTROPHILS % (AUTO) 73 % (42-75); PLATELET COUNT 398 x10^3/uL (130-400); RED BLOOD COUNT 4.19 x10^6/uL (3.82-5.3); RED CELL DISTRIBUTION WIDTH 22.3 % (9.6-15.2)
[2020-03-29 05:03] LABS: ALANINE AMINOTRANSFERASE 17 U/L (12-78); ALBUMIN 2.6 g/dL (3.4-5.0); ANION GAP 6 mmol/L (5-15); CALCIUM 7.9 mg/dL (8.5-10.1); CHLORIDE 100 mmol/L (98-107); CREATININE 1.64 mg/dL (0.55-1.02)
[2020-03-29 05:06] LABS: ALKALINE PHOSPHATASE 163 U/L (45-117); BILIRUBIN,TOTAL 0.3 mg/dL (0.2-1.0)
[2020-03-29 05:11] LABS: MD NO
== END 2020-03-29 06:08 | disposition home or self-care (01) ==
LOC: ED 05:21
DX: R60.0 Localized edema (principal); I13.0 Hypertensive heart and chronic kidney disease with heart failure and stage 1 through stage 4 chronic kidney disease, or unspecified chronic kidney disease; N18.9 Chronic kidney disease, unspecified; I50.9 Heart failure, unspecified; E11.22 Type 2 diabetes mellitus with diabetic chronic kidney disease; Z86.73 Personal history of transient ischemic attack (TIA), and cerebral infarction without residual deficits; L03.115 Cellulitis of right lower limb; L03.116 Cellulitis of left lower limb; E11.65 Type 2 diabetes mellitus with hyperglycemia; J44.9 Chronic obstructive pulmonary disease, unspecified; I25.2 Old myocardial infarction
CPT/HCPCS: 36415; 80053; 85025; 93970; 99284

== ENCOUNTER 2020-08-27 11:51 | Emergency (ER) | payer MEDICARE, OTHER ==
[~2020-08-27] VITALS: Ht 172.7 cm; Wt 104.5 kg
[~2020-08-27 11:51] MED LIST changes: +ACET325T26 PO; +APIX5TAB PO; +DOCU100C33 PO; +INSU100I11 SQ-INSULIN; +INSU100I13 SQ-INSULIN; +LINE600T15 PO; +METO25TA35 PO; +OXYC5TAB98 PO; +TRAZ50TA66 PO
--- NOTE | 2020-08-27 12:13 | NUR ---
BIB EMS FROM HOME WHERE PT HAD A NEAR SYNCOPAL EPISODE WHILE WALKING. PT FELL TO THE GROUND BUT STATES SMALL ABRAISION TO LEFT ARM IS ONLY INJURY. PT STATES HX OF GI BLEED AND WAS HOSPITALIZED IN MAY AND HAD TO GO TO REHAB DUE TO MUSCLE WASTING. PER EMS ATTEMPT TO GET ORTHOSTATIC VITALS FAILED PT PT GOT DIZZY AND COULD NO LONGER STAND. EMS STATED WHILE ON SCENE PT HAD TO USE RESTROOM. PT HAD NORMAL BM NO BLOOD SEEN PER EMS. PT ON 3 LPM O2 VIA NC WHICH IS BASELINE. CARDIAC, NIBP AND O2 MONITORING IN PLACE. CALL LIGHT IN REACH PT EDUCATED TO CALL FOR ALL NEEDS.
[2020-08-27 12:22] LABS: BASOPHILS % (AUTO) 0 % (0-1); EOSINOPHILS % (AUTO) 1 % (1-7); LYMPHOCYTES % (AUTO) 9 % (22-44); MEAN CORPUSCULAR HEMOGLOBIN 26.4 pg (27.0-34.8); MEAN CORPUSCULAR HGB CONC 32.3 g/dL (32.4-35.8); MEAN PLATELET VOLUME 7.7 fL (7.4-10.4); MONOCYTES % (AUTO) 4 % (2-9); NEUTROPHILS % (AUTO) 86 % (42-75); PLATELET COUNT 253 x10^3/uL (130-400); RED BLOOD COUNT 3.87 x10^6/uL (3.82-5.3); RED CELL DISTRIBUTION WIDTH 17.1 % (9.6-15.2)
[2020-08-27 12:23] LABS: MD NO
--- NOTE | 2020-08-27 12:25 | NUR ---
PT PLACED IN HOSPITAL BREIFS AT REQUEST.
[2020-08-27] MEDS ORDERED: SODIUM CHLORIDE 0.9% 1,000ML IVBOLUS ONE (12:30)
[2020-08-27 12:34] LABS: ALBUMIN 3.3 g/dL (3.4-5.0); ANION GAP 5 mmol/L (5-15); CALCIUM 8.7 mg/dL (8.5-10.1); CHLORIDE 108 mmol/L (98-107); CREATININE 1.34 mg/dL (0.55-1.02)
--- NOTE | 2020-08-27 12:45 | NUR ---
REPORT RECEIVED CARE ASSUMED
--- NOTE | 2020-08-27 13:26 | NUR ---
[facility] URINE COMPLETED AFTER EXPLAINING PROCEDURE TO PT. PT MAGDALENA WELL. PT REPOSITIONED FOR COMFORT. URINE WALKED TO LAB.
[2020-08-27 13:36] LABS: MICROSCOPIC AUTO
--- NOTE | 2020-08-27 14:12 | NUR ---
DR PENNINGTON AT BEDSIDE TO RE-EVAL PT
[2020-08-27] MEDS ORDERED: CEFTRIAXONE 1,000 MG in DEXTROSE 5% 50 ML IVPB ONE (14:30)
--- NOTE | 2020-08-27 14:30 | NUR ---
IV ABX STARTED. SR-ST PER MONITOR. PT WITH PO FLUIDS AT BEDSIDE. NO OTHER NEEDS EXPRESSED AT THIS TIME.
--- NOTE | 2020-08-27 15:10 | NUR ---
IV ABX COMPLETED, NO S/S OF REACTION. DISCUSSED WITH PT, TO BE DC'D AND HOW SHE IS GETTING HOME, STATES "I'LL HAVE TO CALL SOMEONE AND HAVE THEM GET MY OXYGEN" PT TO BE ASSISTED WITH BRIEF CHANGE.
[2020-08-27 15:11] VITALS: BP 150/82
--- NOTE | 2020-08-27 15:41 | NUR ---
PT ASSISTED WITH BRIEF CHANGE. PT IN W/C WAITING FOR FAMILY TO ARRIVE. IV DC'D WITH TIP INTACT.
[2020-08-27] MEDS ORDERED: DIPH,PERTUSS(ACELL),TET VAC/PF 0.5 ML IM-VACC ONE (16:30)
[2020-08-27] MEDS ORDERED: LIDOCAINE-MPF 1%, 5ML INFIL ONE (16:30)
--- NOTE | 2020-08-27 16:34 | NUR ---
PT FAMILY HERE WITH PORTABLE OXYGEN. REVIEWED DC INSTRUCTIONS WITH PT. UNDERSTANDING VERBALIZED. PT LEFT VIA W/C, WITH WALKER AND ALL BELONGINGS.
== END 2020-08-27 16:47 | disposition home or self-care (01) ==
LOC: ED 15:55
DX: S50.812A Abrasion of left forearm, initial encounter (principal); S50.811A Abrasion of right forearm, initial encounter; N39.0 Urinary tract infection, site not specified; E86.0 Dehydration; I48.91 Unspecified atrial fibrillation; I11.0 Hypertensive heart disease with heart failure; I50.9 Heart failure, unspecified; I25.2 Old myocardial infarction; E11.65 Type 2 diabetes mellitus with hyperglycemia; J44.9 Chronic obstructive pulmonary disease, unspecified; E11.21 Type 2 diabetes mellitus with diabetic nephropathy; Z86.73 Personal history of transient ischemic attack (TIA), and cerebral infarction without residual deficits; X58.XXXA Exposure to other specified factors, initial encounter; Y93.89 Activity, other specified; Y92.89 Other specified places as the place of occurrence of the external cause; Y99.8 Other external cause status
CPT/HCPCS: 36415; 80048; 81001; 82040; 85025; 87077; 87086; 87186; 93005; 96361; 96365; 99285; J0696; J7030

== ENCOUNTER 2020-11-05 15:05 | Inpatient (IN) | payer MEDICARE, OTHER ==
[~2020-11-05] VITALS: Ht 172.7 cm; Wt 97.5 kg
--- NOTE | 2020-11-05 15:26 | NUR ---
PT BIB EMS FOR SOB, CHEST PRESSURE AND PRODUCTIVE COUGH X 2 DAYS. PT WITH EXTENSIVE MEDICAL HISTORY INCLUDING RECENT HOSPITALIZATION FOR BLOOD CLOTS AND UTI. PT ON MACROBID FOR UTI. PT WITH HISTORY OF A-FIB AND ARRIVES TO [facility] ED IN A-FIB WITH RVR. PT CHANGED INTO GOWN AND IN [place] AT THIS TIME, WITH OPAL QUINONES STUDENT, AT BS FOR PT HISTORY AND ASSESSMENT. PT VSS. EKG DONE AT BS AT THIS TIME. PT ATTACHED TO ALL VS AND CARDIOPULMONARY MONITORS. PT EDUCATED ON ER PROCES AND POC AND VERBALIZES UNDERSTANDING. PT HAD PIV ACCESS ESTABLISHED IN ROUTE AND PLACE ON 2L NC WHICH IS HER BASELINE O2 USE AT HOME. PT DENIES ANY NEEDS AT THIS TIME. AWAITING NEW ORDERS FOR ERP.
[2020-11-05 15:54] LABS: BASOPHILS % (AUTO) 0 % (0-1); EOSINOPHILS % (AUTO) 3 % (1-7); LYMPHOCYTES % (AUTO) 5 % (22-44); MEAN CORPUSCULAR HEMOGLOBIN 27.2 pg (27.0-34.8); MEAN CORPUSCULAR HGB CONC 32.5 g/dL (32.4-35.8); MEAN PLATELET VOLUME 7.9 fL (7.4-10.4); MONOCYTES % (AUTO) 6 % (2-9); NEUTROPHILS % (AUTO) 85 % (42-75); PLATELET COUNT 338 x10^3/uL (130-400); RED BLOOD COUNT 4.17 x10^6/uL (3.82-5.3); RED CELL DISTRIBUTION WIDTH 15.5 % (9.6-15.2)
--- NOTE | 2020-11-05 15:55 | NUR ---
XRAY AT BS WITH PT AT THIS TIME. UA COLLECTED AND TUBED TO LAB.
[2020-11-05 16:03] LABS: ALBUMIN 3.1 g/dL (3.4-5.0); ANION GAP 8 mmol/L (5-15); CALCIUM 8.4 mg/dL (8.5-10.1); CHLORIDE 105 mmol/L (98-107); CREATININE 1.33 mg/dL (0.55-1.02); INTERNATIONAL NORMALIZED RATIO 1.78 (0.93-1.1); PROTHROMBIN TIME 18.5 Seconds (9.6-11.5)
[2020-11-05 16:07] LABS: TROPONIN I < 0.015 ng/mL (0.000-0.045)
[2020-11-05 16:11] LABS: MICROSCOPIC INDICATED
[2020-11-05] MEDS ORDERED: FUROSEMIDE 40 MG/4 ML IVPush ONE (17:00)
[2020-11-05] MEDS ORDERED: ENOXAPARIN 40 MG/0.4 ML SQ ONE (17:00)
[2020-11-05] MEDS ORDERED: DILTIAZEM 5 MG/ML, 5ML IV ONE (17:00)
[2020-11-05] MEDS ORDERED: NITROGLYCERIN OINT 2%, 1GM TP ONE ×2 (17:00→17:26)
[2020-11-05] MEDS ORDERED: FUROSEMIDE 40 MG/4 ML ONE (17:25)
[2020-11-05] MEDS ORDERED: ENOXAPARIN 40 MG/0.4 ML ONE (17:25)
[2020-11-05] MEDS ORDERED: DILTIAZEM 5 MG/ML, 5ML ONE (17:26)
--- NOTE | 2020-11-05 17:37 | NUR ---
DR. CAUSEY AT BS. PER DR CAUSEY, HOLD NITROBID AT THIS TIME.
--- NOTE | 2020-11-05 17:55 | NUR ---
REPORT OF PT TO KASH FONSECA. ALL QUESTIONS ANSWERED.
[2020-11-05] MEDS ORDERED: hydrALAzine 20 MG/ML, 1ML IVPush PRN (18:00)
[2020-11-05] MEDS ORDERED: ONDANSETRON 2MG/ML, 2ML IVPush PRN (18:00)
[2020-11-05] MEDS ORDERED: ONDANSETRON ODT 4 MG PO PRN (18:00)
[2020-11-05] MEDS ORDERED: LABETALOL 5MG/ML, 20ML IVPush PRN (18:00)
[2020-11-05] MEDS ORDERED: DILTIAZEM 5 MG/ML, 5ML IVPush PRN (18:00)
[2020-11-05] MEDS ORDERED: GLUCAGON 1 MG IM PRN (18:30)
[2020-11-05] MEDS ORDERED: DOCUSATE 100 MG CAPSULE PO PRN (18:30)
[2020-11-05] MEDS ORDERED: DEXTROSE 50%, 50ML SYRINGE IVPush PRN (18:30)
[2020-11-05] MEDS ORDERED: DEXTROSE 4 GM TAB.CHEW PO PRN (18:30)
[2020-11-05] MEDS ORDERED: OXYcodone IR 5MG TABLET PO PRN (18:30)
[2020-11-05 18:31] VITALS: BP 132/95
[2020-11-05] MEDS ORDERED: WARFARIN 5 MG TABLET PO-COUM ONE (18:43)
[2020-11-05] MEDS: DILTIAZEM 30 MG TABLET PO SCH (18:52)
[2020-11-05 19:21] LABS: ANION GAP 4 mmol/L (5-15); CALCIUM 8.8 mg/dL (8.5-10.1); CHLORIDE 106 mmol/L (98-107); CREATININE 1.35 mg/dL (0.55-1.02)
[2020-11-05 19:22] LABS: TROPONIN I < 0.015 ng/mL (0.000-0.045)
[2020-11-05] MEDS: CEFTRIAXONE 2 GM in DEXTROSE 5% 50 ML IVPB SCH (21:37)
[2020-11-05] MEDS: PRAVASTATIN 40 MG TABLET PO SCH (21:37)
[2020-11-05] MEDS: INSULIN LISPRO 100 UNITS/ML, PEN SQ-INSULIN SCH (21:54)
[2020-11-05] MEDS: SODIUM CHLORIDE FLUSH 10ML SYR IVF SCH (21:55)
[2020-11-05] MEDS: INSULIN GLARGINE 100 UNITS/ML, PEN SQ-INSULIN SCH (22:43)
[2020-11-06] MEDS: DILTIAZEM 30 MG TABLET PO SCH ×4 (00:30→20:22)
[2020-11-06 01:07] VITALS: BP 125/73
[2020-11-06 05:44] LABS: BASOPHILS % (AUTO) 1 % (0-1); EOSINOPHILS % (AUTO) 4 % (1-7); LYMPHOCYTES % (AUTO) 11 % (22-44); MEAN CORPUSCULAR HEMOGLOBIN 27.5 pg (27.0-34.8); MEAN CORPUSCULAR HGB CONC 32.8 g/dL (32.4-35.8); MEAN PLATELET VOLUME 7.9 fL (7.4-10.4); MONOCYTES % (AUTO) 7 % (2-9); NEUTROPHILS % (AUTO) 78 % (42-75); PLATELET COUNT 315 x10^3/uL (130-400); RED BLOOD COUNT 4.13 x10^6/uL (3.82-5.3); RED CELL DISTRIBUTION WIDTH 15.7 % (9.6-15.2)
[2020-11-06 05:46] LABS: INTERNATIONAL NORMALIZED RATIO 2.02 (0.93-1.1); PROTHROMBIN TIME 20.9 Seconds (9.6-11.5)
[2020-11-06 06:51] VITALS: BP 113/73
[2020-11-06] MEDS: INSULIN LISPRO 100 UNITS/ML, PEN SQ-INSULIN SCH ×4 (07:00→21:05)
[2020-11-06] MEDS ORDERED: FUROSEMIDE 40 MG/4 ML IV ONE ×2 (07:30→08:00)
[2020-11-06] MEDS: ALBUTEROL/IPRATROPIUM 2.5MG/0.5MG, 3 ML HHN SCH ×4 (07:41→19:30)
[2020-11-06] MEDS ORDERED: OMEPRAZOLE 20 MG CAPSULE.DR PO ONE (08:20)
[2020-11-06] MEDS: SODIUM BICARBONATE 650 MG TABLET PO SCH (08:56)
[2020-11-06] MEDS: PAROXETINE 20 MG TABLET PO SCH (08:56)
[2020-11-06] MEDS: SODIUM CHLORIDE FLUSH 10ML SYR IVF SCH ×2 (08:57→21:05)
[2020-11-06] MEDS: INSULIN GLARGINE 100 UNITS/ML, PEN SQ-INSULIN SCH ×2 (08:57→20:37)
[2020-11-06] MEDS: LORazepam 0.5MG TABLET PO PRN ×2 (12:04→22:19)
[2020-11-06 12:12] VITALS: BP 107/72
[2020-11-06] MEDS ORDERED: WARFARIN 5 MG TABLET PO-COUM ONE (18:00)
[2020-11-06] MEDS: OMEPRAZOLE 20 MG CAPSULE.DR PO SCH (18:18)
[2020-11-06 19:41] VITALS: BP 104/69
[2020-11-06] MEDS: PRAVASTATIN 40 MG TABLET PO SCH (20:22)
[2020-11-06] MEDS: CEFTRIAXONE 2 GM in DEXTROSE 5% 50 ML IVPB SCH (20:36)
[2020-11-07 02:03] VITALS: BP 111/68
[2020-11-07] MEDS: DILTIAZEM 30 MG TABLET PO SCH (04:08)
[2020-11-07 05:19] LABS: BASOPHILS % (AUTO) 1 % (0-1); EOSINOPHILS % (AUTO) 4 % (1-7); LYMPHOCYTES % (AUTO) 13 % (22-44); MEAN CORPUSCULAR HEMOGLOBIN 27.7 pg (27.0-34.8); MEAN CORPUSCULAR HGB CONC 33.4 g/dL (32.4-35.8); MONOCYTES % (AUTO) 7 % (2-9); NEUTROPHILS % (AUTO) 75 % (42-75); PLATELET COUNT 298 x10^3/uL (130-400); RED BLOOD COUNT 3.65 x10^6/uL (3.82-5.3); RED CELL DISTRIBUTION WIDTH 15.3 % (9.6-15.2)
[2020-11-07 05:21] LABS: INTERNATIONAL NORMALIZED RATIO 2.55 (0.93-1.1); PROTHROMBIN TIME 26.1 Seconds (9.6-11.5)
[2020-11-07 05:24] LABS: ANION GAP 6 mmol/L (5-15); CALCIUM 8.4 mg/dL (8.5-10.1); CHLORIDE 104 mmol/L (98-107)
[2020-11-07 05:27] LABS: CREATININE 1.67 mg/dL (0.55-1.02)
[2020-11-07] MEDS: OMEPRAZOLE 20 MG CAPSULE.DR PO SCH ×2 (05:56→17:00)
[2020-11-07] MEDS: ALBUTEROL/IPRATROPIUM 2.5MG/0.5MG, 3 ML HHN SCH ×4 (06:50→18:56)
[2020-11-07 06:54] VITALS: BP 117/75
[2020-11-07] MEDS: INSULIN LISPRO 100 UNITS/ML, PEN SQ-INSULIN SCH ×4 (07:00→21:00)
[2020-11-07] MEDS: SODIUM CHLORIDE FLUSH 10ML SYR IVF SCH ×2 (08:11→21:00)
[2020-11-07] MEDS: INSULIN GLARGINE 100 UNITS/ML, PEN SQ-INSULIN SCH ×2 (08:43→21:03)
[2020-11-07] MEDS: DILTIAZEM 90 MG CAP.ER.12H PO SCH ×2 (08:45→21:05)
[2020-11-07] MEDS: PAROXETINE 20 MG TABLET PO SCH (08:45)
[2020-11-07] MEDS: SODIUM BICARBONATE 650 MG TABLET PO SCH (08:46)
[2020-11-07] MEDS: LORazepam 0.5MG TABLET PO PRN ×2 (10:56→23:08)
[2020-11-07 12:46] VITALS: BP 122/77
[2020-11-07] MEDS: ERTAPENEM 1 GM in SODIUM CHLORIDE 0.9% 50 ML IV SCH (17:01)
[2020-11-07] MEDS ORDERED: WARFARIN 2 MG TABLET PO-COUM ONE (18:00)
[2020-11-07 21:02] VITALS: BP 132/77
[2020-11-07] MEDS: PRAVASTATIN 40 MG TABLET PO SCH (21:05)
[2020-11-08 00:05] VITALS: BP 128/84
[2020-11-08] MEDS: OMEPRAZOLE 20 MG CAPSULE.DR PO SCH ×2 (05:20→16:19)
[2020-11-08 05:50] LABS: INTERNATIONAL NORMALIZED RATIO 4.04 (0.93-1.1); PROTHROMBIN TIME 40.4 Seconds (9.6-11.5)
[2020-11-08 05:52] LABS: ANION GAP 3 mmol/L (5-15); CALCIUM 8.2 mg/dL (8.5-10.1); CHLORIDE 107 mmol/L (98-107); CREATININE 1.53 mg/dL (0.55-1.02)
[2020-11-08] MEDS: INSULIN LISPRO 100 UNITS/ML, PEN SQ-INSULIN SCH ×4 (07:00→20:40)
[2020-11-08 07:06] VITALS: BP 108/70
[2020-11-08] MEDS: ALBUTEROL/IPRATROPIUM 2.5MG/0.5MG, 3 ML HHN SCH ×4 (07:30→19:52)
[2020-11-08] MEDS ORDERED: PAROXETINE 20 MG TABLET PO ONE (08:30)
[2020-11-08] MEDS: DILTIAZEM 90 MG CAP.ER.12H PO SCH ×2 (09:07→20:38)
[2020-11-08] MEDS: LORazepam 0.5MG TABLET PO PRN ×2 (09:07→23:09)
[2020-11-08] MEDS: SODIUM BICARBONATE 650 MG TABLET PO SCH (09:08)
[2020-11-08] MEDS: SODIUM CHLORIDE FLUSH 10ML SYR IVF SCH ×2 (09:17→20:38)
[2020-11-08] MEDS: INSULIN GLARGINE 100 UNITS/ML, PEN SQ-INSULIN SCH ×2 (09:17→20:39)
[2020-11-08] MEDS ORDERED: WARFARIN 2 MG TABLET PO-COUM ONE ×2 (16:00→18:00)
[2020-11-08] MEDS: ERTAPENEM 1 GM in SODIUM CHLORIDE 0.9% 50 ML IV SCH (16:19)
[2020-11-08 16:27] VITALS: BP 124/76
[2020-11-08 19:45] VITALS: BP 130/81
[2020-11-08] MEDS: PRAVASTATIN 40 MG TABLET PO SCH (20:38)
[2020-11-08] MEDS ORDERED: PAROXETINE 20 MG TABLET PO SCH (23:00)
[2020-11-09 02:12] VITALS: BP 133/86
[2020-11-09 05:29] LABS: ANION GAP 2 mmol/L (5-15); CALCIUM 8.3 mg/dL (8.5-10.1); CHLORIDE 106 mmol/L (98-107); CREATININE 1.34 mg/dL (0.55-1.02)
[2020-11-09 05:30] LABS: INTERNATIONAL NORMALIZED RATIO 1.96 (0.93-1.1); PROTHROMBIN TIME 20.3 Seconds (9.6-11.5)
[2020-11-09] MEDS: OMEPRAZOLE 20 MG CAPSULE.DR PO SCH ×2 (06:15→15:43)
[2020-11-09 06:59] VITALS: BP 125/73
[2020-11-09] MEDS: INSULIN LISPRO 100 UNITS/ML, PEN SQ-INSULIN SCH ×3 (07:00→16:00)
[2020-11-09] MEDS: ALBUTEROL/IPRATROPIUM 2.5MG/0.5MG, 3 ML HHN SCH ×3 (07:00→14:10)
[2020-11-09] MEDS: LORazepam 0.5MG TABLET PO PRN (07:47)
[2020-11-09] MEDS: SODIUM BICARBONATE 650 MG TABLET PO SCH (07:48)
[2020-11-09] MEDS: DILTIAZEM 90 MG CAP.ER.12H PO SCH (07:48)
[2020-11-09] MEDS: INSULIN GLARGINE 100 UNITS/ML, PEN SQ-INSULIN SCH (07:49)
[2020-11-09] MEDS: SODIUM CHLORIDE FLUSH 10ML SYR IVF SCH (07:49)
[2020-11-09 12:37] VITALS: BP 131/72
[2020-11-09] MEDS ORDERED: ERTAPENEM 1 GM in SODIUM CHLORIDE 0.9% 50 ML IV ONE (13:00)
[2020-11-09] MEDS ORDERED: DILT90CA PO (13:41)
[2020-11-09] MEDS ORDERED: WARFARIN 5 MG TABLET PO-COUM ONE ×2 (15:41→18:00)
== END 2020-11-09 16:45 | disposition home health service (06) | DRG 291 ==
LOC: ED 15:35 → EDIP 16:55 → SUATTDRO 17:17 → 5SO 18:25
PROVIDERS: ADMIT Internal Medicine; ATTEND Family Medicine
DX: I13.0 Hypertensive heart and chronic kidney disease with heart failure and stage 1 through stage 4 chronic kidney disease, or unspecified chronic kidney disease (principal); I50.33 Acute on chronic diastolic (congestive) heart failure; I48.20 Chronic atrial fibrillation, unspecified; N39.0 Urinary tract infection, site not specified; J91.8 Pleural effusion in other conditions classified elsewhere; Z88.0 Allergy status to penicillin; Z88.8 Allergy status to other drugs, medicaments and biological substances; Z66 Do not resuscitate; B96.1 Klebsiella pneumoniae [K. pneumoniae] as the cause of diseases classified elsewhere; E11.22 Type 2 diabetes mellitus with diabetic chronic kidney disease; E11.51 Type 2 diabetes mellitus with diabetic peripheral angiopathy without gangrene; F41.9 Anxiety disorder, unspecified; G89.29 Other chronic pain; I25.2 Old myocardial infarction; J44.9 Chronic obstructive pulmonary disease, unspecified; N18.30 Chronic kidney disease, stage 3 unspecified; Z79.01 Long term (current) use of anticoagulants; Z79.4 Long term (current) use of insulin; Z79.899 Other long term (current) drug therapy; Z86.73 Personal history of transient ischemic attack (TIA), and cerebral infarction without residual deficits; Z87.891 Personal history of nicotine dependence
CPT/HCPCS: 36415; 71045; 80048; 81001; 82040; 82962; 83605; 83735; 83880; 84100; 84145; 84484; 85025; 85610; 87040; 87077; 87086; 87186; 93005; 93306; 94640; 96374; 96375; G0378; J0696; J1335; J1650; J1940; J1815